=== PATIENT | male | born 1950 | race Caucasian/White ===

== ENCOUNTER 2017-04-19 15:28 | Inpatient (IN) | payer OTHER, MEDICARE ==
[~2017-04-19] VITALS: Ht 177.8 cm; Wt 53.3 kg
--- NOTE | ~2017-04-19 | PR ---
[place], [place] PROGRESS NOTE NAME: [id number] UNIT #: [id number] ROOM: 525 DOCTOR: NITO ALVARADO MD,CHAPIN BIRTHDATE: [birth year] DOS: 04/23/2017 SUBJECTIVE: His oxygen requirement has been noted back to 2 liter nasal cannula. The patient reported reduction in respiratory symptoms in general. The coughing and shortness of breath have been decreasing. OBJECTIVE: VITAL SIGNS: Normal temperature, respiratory rate 20, heart rate 73, blood pressure 118/68. The pulse oxygen saturation on 2 liters nasal cannula 92% saturation. HEENT: Showed no acute change. NECK: Supple. CARDIOVASCULAR: S1, S2 audible. LUNGS: Without any wheezing or crackle. Breaths are noted generally diminished bilaterally. ABDOMEN: Soft, nontender. LABORATORY DATA: CBC: WBC count was normal, hemoglobin 11.8, hematocrit 36.7, platelet count 210,000. BMP of the patient on 04/23/2017 was noted normal BUN and creatinine. CO2 of 37. IMPRESSION: 1. The patient who has been currently noted with resolving acute pneumonia as well as acute hypoxic respiratory failure. 2. History of nicotine dependence. 3. Acute exacerbation of chronic obstructive pulmonary disease. PLAN OF TREATMENT: Assessment for the home oxygen supplementation possible in the morning. Repeat a chest x-ray of the patient, PA lateral today, assessment of the progression of the pneumonia, radiological assessment. Other supportive plan of management and care. Usual treatment. Additional treatment changes for this patient will be done based on the progression of the illness. CHAPIN BEAUCHAMP MD CM:PNTRANS [id number] CHAPIN ALVARADO MD 04/24/17 0416 interface
--- NOTE | ~2017-04-19 | PR ---
[place], [place] PROGRESS NOTE NAME[facility] [id number] UNIT #: [id number] ROOM: 525 DOCTOR: NITO ALVARADO MD,CHAPIN BIRTHDATE: [birth year] DOS: 04/21/2017 SUBJECTIVE: He has been coughing at this time and noted some sputum expectoration. Denies any chest pain. He was continued with Solu-Medrol, bronchodilators, and the antibiotic with the respiratory symptom. The patient has been noted with partial reduction. OBJECTIVE: VITAL SIGNS: Shows a normal temperature, respiratory rate of 20, heart rate 74, and blood pressure 116/58. HEENT: Examination for the patient was noted without any acute new changes. NECK: Supple. CARDIOVASCULAR: S1, S2 audible. LUNGS: The patient was noted with general reduction in breath sounds with expiratory wheezing. There were no crackles. ABDOMEN: Soft, nontender. LABORATORY DATA: BMP normal. CBC, mild anemia, otherwise normal. IMPRESSION: The patient with acute pneumonia with exacerbation of chronic obstructive pulmonary disease with additional area of possible atelectasis, mucus impaction of the airways, and severe bullous emphysema. PLAN OF MANAGEMENT: No changes from the pulmonary standpoint. Continue current dose of steroids, possible reduction may be considered for the morning. CHAPIN BEAUCHAMP MD CM:PNTRANS [id number] CHAPIN ALVARADO MD 04/22/17 0253 interface
--- NOTE | ~2017-04-19 | CON ---
[place], [place] REPORT OF CONSULTATION NAME: [facility] [id number] UNIT #: [id number] ROOM: 525 DOCTOR: BHUMI SANTANA DO BIRTHDATE: [birth year] DOS: 04/20/2017 This consult note is to be attached to the one dictated by Dr. Beauchamp separately. REASON FOR CONSULTATION: COPD. CHIEF COMPLAINT: Cough. HISTORY OF PRESENT ILLNESS: A 66-year-old gentleman presents with worsening shortness of breath. He follows with Dr. Beauchamp ____ and he is a chronic smoker and continues to do so. He does have a history of COPD and he uses oxygen at home in the form of 3 liters nasal cannula at night mostly. He states over the past 3 days, he has been needing his oxygen all the time and that his pulse ox has been lower than it had previously. He has had a history of a lobectomy and he does admit to chills and a productive cough that brings out white sputum. He denies chest pain, but admits to congestion and malaise. Denies any abdominal pain, nausea, vomiting, diarrhea or any other symptoms. PAST MEDICAL HISTORY: Significant for COPD, BPH, GERD, microcytic anemia, oxygen dependent COPD and protein-calorie malnutrition. PAST SURGICAL HISTORY: Positive for left hip replacement, history of lung surgery. SOCIAL HISTORY: Positive for intermediate tobacco abuse, but he does not drink or use any drugs. FAMILY HISTORY: Father had OR at age 50. Mother had breast cancer, hypothyroidism and Parkinson's. ALLERGIES: ERYTHROMYCIN BASE. HOME MEDICATIONS: Albuterol, aspirin, famotidine, Advair, DuoNeb, Flomax. REVIEW OF SYSTEMS: GENERAL: Reports chills, but denies fevers or weight loss or weight gain. HEENT: Denies any vision changes, blurred vision. CARDIOVASCULAR: Denies chest pain, palpitations, but does feels chest congestion and tightness. RESPIRATORY: Reports shortness of breath, cough, wheezing, productive cough with white sputum, but denies hemoptysis or stridor. ABDOMINAL: Denies abdominal pain, nausea, vomiting, diarrhea. GENITOURINARY: Denies dysuria, hematuria, but admits to frequency and hesitancy. NEUROLOGIC: Denies lightheadedness, dizziness. PSYCHIATRIC: Denies depression, anxiety. ENDOCRINE: Denies polydipsia or heat or cold intolerance. SKIN: Denies any rashes or new lesions. PHYSICAL EXAMINATION: [place], [place] REPORT OF CONSULTATION NAME: SANDRO SPAIN UNIT #: [id number] ROOM: [facility] DOCTOR: BHUMI SANTANA DO BIRTHDATE: [birth year] VITAL SIGNS: Most recent set of vital signs: Temperature is 98.5, pulse is 80, respiratory rate is 20, blood pressure is 116/70 and bedside pulse oximetry is 96% on 3 liter nasal cannula. GENERAL: Awake, alert, oriented, in no acute distress. HEAD: Normocephalic, atraumatic. EYES: No lesions. No ulcerations. Nonicteric. No drainage. ENT: No lesions. No scars. No masses. NECK: Without masses, without ulcerations. Trachea is midline. HEART: Regular rate and rhythm. No murmur. Carotids are free of bruits. LUNGS: Diminished breath sounds with rhonchi and wheezes. ABDOMEN: Soft, positive bowel sounds. No guarding. No rigidity. EXTREMITIES: No clubbing. No erythema. No cyanosis. NEUROLOGIC: Grossly intact without focal neuro deficits. PSYCHIATRIC: Good historian, with fair judgment and insight. LABORATORY DATA: Chemistry: Sodium is 138, potassium 4.2, chloride is 104, carbon dioxide is 29, BUN is 10, creatinine 0.36, glucose is 147, A1c 5.6, calcium 8.4. Vitamin B12 is ____. TSH is 0.289. CBC: WBC is 5.4, hemoglobin 11.7, platelets 128. IMAGING: Chest x-ray done yesterday shows emphysema and atelectasis, possible pneumonia. CT done yesterday showed bilateral lower lobe pneumonia and severe COPD. MICROBIOLOGY: Blood cultures are pending. Sputum cultures are pending. Flu swab is negative for A and B. ASSESSMENT: 1. Bilateral pneumonia, which is leading to acute on chronic respiratory failure with hypoxia. 2. Chronic obstructive pulmonary disease exacerbation. 3. Tobacco abuse. 4. Tobacco abuse counseling. Plan: The patient has been admitted and is being treated with Rocephin and azithromycin as well as Solu-Medrol. Solu-Medrol dosing has been changed to 40 mg t.i.d. We will continue with Rocephin, azithromycin, continue with breathing treatments q. 4 hours as needed. The patient has been counseled on tobacco abuse cessation. He verbalized understanding. Otherwise, we will wait on cultures to come back. We will continue with all the steroids, antibiotics for ____. If any other questions, please see Dr. Beauchamp's note. Thank you very much for this consult. BHUMI SANTANA DO [place], [place] REPORT OF CONSULTATION NAME: SANDRO SPAIN UNIT #: [id number] ROOM: [facility] DOCTOR: BHUMI SANTANA DO BIRTHDATE: [birth year] CHAPIN BEAUCHAMP MD CM:CONSTR:REPORT OF CONSULTATION 1331 04/20/17 2229 interface
--- NOTE | ~2017-04-19 | CON ---
[place], [place] REPORT OF CONSULTATION NAME: SANDRO SPAIN [facility] #: [id number] UNIT #: [id number] ROOM: 525 DOCTOR: NITO ALVARADO MD,CHAPIN BIRTHDATE: [birth year] DOS: 04/20/2017 REASON FOR CONSULTATION: Consultation requested by the Hospitalist Services for assessment exacerbation of COPD. The patient was independently seen today with [id number] encounter, history was confirmed for this patient. Personally physical examination performed. All the available labs for the patient including radiology data was personally reviewed. The assessment for this patient was personally completed for today's visit. The changes in the medical management was made today as well for this consultation personally. The patient was known to me with history of severe COPD with bullous emphysema with history of nicotine abuse. The patient stated that he has been noted with acute illness started with a sore throat, initially a few days ago, which has been noted progressively worsening with a coughing associated with intermittent sputum expectoration. The patient also reported symptoms of wheezing as well. There were no symptoms of chest pain reported. The patient came into the hospital where he has been admitted to the hospital for further medical management at this time. REVIEW OF SYSTEMS: Completed by the curator medical museum. PAST MEDICAL HISTORY: 1. The patient was known to me with centrilobular emphysema. The patient with embolism emphysema, which was noted moderate to severe previously. 2. History of BPH. 3. Fungal infection, right upper lobe. The patient is status post lobectomy. 4. Past history of acute hypoxic respiratory failure, resolved. PAST SURGICAL HISTORY: 1. Removal of cyst from the hip. 2. Past therapeutic bronchoscopy. 3. PICC line insertion. 4. Right upper lobectomy for fungal infection as well approximately 8 years ago. SOCIAL HISTORY: The patient is . He is currently retired. He has been exposed to the dust intermittently at his job. Smoking started for the patient since teenager, one and half to 2 packs of cigarettes per day, was still smoking about half a pack of cigarettes or so. Stated that he has not smoked cigarettes in the past few days since . Denies any history of alcohol use at this time, but used to drink alcohol in the past. FAMILY HISTORY: Noted remarkable for cancer and myocardial infarction. MEDICATIONS: Current administered medications Solu-Medrol 60 mg q.8 hours, aspirin, Flomax, Lovenox for DVT prophylaxis, Prilosec, Mucinex 1200 mg b.i.d., DuoNeb q.4h., Zithromax and IV Rocephin administration. ALLERGIES: NOTED ALLERGY TO ERYTHROMYCIN. PHYSICAL EXAMINATION: [place], [place] REPORT OF CONSULTATION [facility] [id number] UNIT #: [id number] ROOM: 525 DOCTOR: NITO ALVARADO MD,CHAPIN BIRTHDATE: [birth year] GENERAL: A 66-year-old male who has been currently noted comfortable at this time, sitting on side of the bed. Height of 5 feet 10 inches, weight 117 pounds, BMI 16.8. VITAL SIGNS: Normal temperature, respiratory rate 18-22, heart rate 80 to 64, blood pressure 116/70 to 118/70. Pulse oxygen saturation of the patient was noted on 3 liters nasal cannula 96% saturation. HEENT: Examination shows head was atraumatic. Eyes nonicterus. NECK: Supple. Oral mucosa moist. CARDIOVASCULAR: S1, S2 audible. LUNGS: The patient noted with moderate decreased breath sounds in the lungs bilaterally with expiratory wheezing. There were no crackles. ABDOMEN: Soft, flat, nontender, bowel sounds present. CENTRAL NERVOUS SYSTEM: Was noted with Cranial nerves 2-12 intact. No focal deficit. EXTREMITIES: The patient was noted without any edema, clubbing or cyanosis. LABORATORY DATA: CBC of the patient that was done yesterday on admission; WBC count 11.5, hemoglobin 13.4, hematocrit 40.3, platelet count normal. WBC count normal. PT/INR was normal. CMP of the patient of 04/19/2017; BUN and creatinine was normal. Sodium 133. AST of 36. Lactic acid yesterday 1.4. Influenza A and B, nasal washing antigens yesterday noted negative. CBC is normal. WBC count, remaining CBC unchanged. BMP: Glucose 147, normal BUN, creatinine and the other electrolytes and the LFTs. The chest x-ray, one view, that was done was reviewed, shows postsurgical changes, right upper lobe with volume loss as a chronic finding without any acute visible acute infiltration. CT scan of the chest was done for this patient yesterday that I personally reviewed from the PACS images, shows severe bullous emphysema changes noted in the lungs bilaterally. A large bullous emphysema was present in the right middle lobe patient with some area of scarring. Acute infiltration was noted. Area of consolidation in the right and the left lower lobes. IMPRESSION: 1. The patient who has been currently admitted to the hospital. The patient was noted with finding consistent with an acute bilateral lower lobe pneumonia secondary to current acute illness of patient with acute exacerbation of chronic obstructive pulmonary disease as well. 2. Severe bullous emphysema, which has been noted severe from the past with chronic continued nicotine abuse. There was no evidence of pneumothorax. 3. The patient with low BMI for the patient, which is chronic and known previously. 4. Mild hyponatremia for this patient was also noted, which has hyponatremia secondary to intravascular volume depletion, resolved for the patient in 24 hours with hydration. PLAN OF MANAGEMENT: The sputum for Gram stain and culture. Continue Mucinex. Reduce Solu-Medrol 40 mg q.8h. Continue current antibiotics with monitoring of the respiratory status. There is no need for BiPAP use. Other supportive therapy, plan of management to be continued. Additional treatment changes to be made based on the progression of his illness. [place], [place] REPORT OF CONSULTATION NAME: SANDRO SPAIN [facility] UNIT #: [id number] ROOM: 525 DOCTOR: CHAPIN STAFFORD MD BIRTHDATE: [birth year] CHAPIN BEAUCHAMP MD CM:CONSTR:REPORT OF CONSULTATION 1225 04/21/17 0114 interface
--- NOTE | ~2017-04-19 | PR ---
[place], [place] PROGRESS NOTE NAME[id number] UNIT #: [id number] ROOM: 525 DOCTOR: CHAPIN STAFFORD MD BIRTHDATE: [birth year] DOS: 04/24/2017 SUBJECTIVE: He has been noted comfortable at this time without any distress. He has not been noted with symptoms of chest pain or any abdominal pain. The respiratory symptom has been noted with gradual reduction. OBJECTIVE: VITAL SIGNS: Show the temperature noted as normal. Respiratory rate was noted as 20. Heart rate of 70. Blood pressure 118/72. Pulse oxygen saturation on 2 liters nasal cannula 94% saturation. HEENT: Examination shows no new change. NECK: Supple. CARDIOVASCULAR: S1, S2 audible. LUNGS: The patient was noted with moderate decreased breath sounds without wheezing or crackles. ABDOMEN: Soft, nontender. DIAGNOSTIC DATA: The patient's chest x-ray done yesterday was reviewed, PA lateral view resolving infiltration in the right lower lobe. Severe COPD changes bullous emphysema was seen. IMPRESSION: 1. The patient who has been currently noted with a gradual improvement in the respiratory status. 2. Acute hypoxic respiratory failure, will be requiring oxygen supplementation as assessment was performed yesterday. The patient will be needing 2 liters of oxygen supplementation. 3. Resolving acute right lower lobe pneumonia, nonaspiration with the gram-positive organisms. 4. History of low-grade nicotine abuse. 5. Bullous emphysema. PLAN OF TREATMENT: The patient could be discharged on oral tapering dose of prednisone, antibiotics and oxygen supplementation. Portable oxygen use. Outpatient follow up in about 2 to 3 weeks to be established in the office. [place], [place] PROGRESS NOTE NAME: SANDRO SPAIN UNIT #: [id number] ROOM: [facility] DOCTOR: CHAPIN STAFFORD MD BIRTHDATE: [birth year] CHAPIN BEAUCHAMP MD CM:PNTRANS [id number] CHAPIN ALVARADO MD 04/25/17 0046 interface
--- NOTE | ~2017-04-19 | PR ---
[place], [place] PROGRESS NOTE [id number] UNIT #: [id number] ROOM: 525 DOCTOR: NITO ALVARADO MD,CHAPIN BIRTHDATE: [birth year] DOS: 04/22/2017 SUBJECTIVE: He has been noted comfortable at this time. Oxygen supplementation, the patient was given between 2 to 4 liter nasal cannula for the medical management of hypoxia. The patient's shortness of breath, cough and other symptoms have been improving, but slowly. OBJECTIVE: VITAL SIGNS: For the patient which has been recorded shows normal temperature, respiratory rate 20, heart rate 78, blood pressure 119/82. Pulse oxygen saturation, the patient on 3 liters with 95% saturation. HEENT: Shows no acute change. NECK: Supple. CARDIOVASCULAR: S1, S2 audible. LUNGS: General reduction in the breath sounds were noted in the lungs bilaterally. There were no wheeze or crackles. ABDOMEN: Soft, nontender. IMPRESSION: 1. Stable respiratory status was noted at the present time with resolving acute pneumonia, lower lungs, with some areas of atelectasis. 2. Acute exacerbation of chronic obstructive pulmonary disease. 3. Acute hypoxic respiratory failure, requiring oxygen 4 liter nasal cannula, normally does not use any oxygen at home. PLAN OF MANAGEMENT: No changes in the plan of therapy at this time will be necessary. The patient will be continued on the current plan of management and care. Usual care, other supportive plan of therapies and treatments. CHAPIN BEAUCHAMP MD CM:PATRICK 1140 CHAPIN ALVARADO MD 04/23/17 0117 interface
[~2017-04-19 15:28] MED LIST: ACCUNEB 0.1.25 MG/1 INH; ADVAIR 250/501 EA; ASPIRIN81 M1 PO; CEFEPIME1 GM IJ; DULCOLAX5 MG PO; DUONEB 3 MG/3 ML3 M1 INH; Duoneb 3ML 3 MG/3 ML INH; FLOMAX0.4 MG; LEVAQUIN500 M1 IV; MEDROL DOSEPAK4 MG PO; METHYLPREDNI40 MG/M1 IV; MUCINEX DM 30/61 TAB PO; MULTIVITAMIN1 CTB PO; PEPCID20 MG PO; PROAIR HFA8.5 GM IH; PROVENTIL0.09 MG/AC; ROBITUSSIN AC 110 ML PO; SOLU-MEDROL1000 MG IV; TYLENOL325 M1 PO; VANCOMYCIN750 MG/151 IV; XANAX0.25 MG PO; ZALEPLON5 MG PO; ZOSYN 3.373.375 GM/5 IV
[2017-04-19 15:40] VITALS: BP 114/71
[2017-04-19 16:09] LABS: HEMATOCRIT 40.3 % (42.0-52.0); HEMOGLOBIN 13.4 g/dl (14.0-18.0); MEAN CELL VOLUME 96.6 fl (80.0-94.0); MEAN CORPUSCULAR HGB 32.1 pg (27.0-31.0); MEAN CORPUSCULAR HGB CONC 33.3 g/dl (33.0-37.0); MEAN PLATELET VOLUME 11.5 fl (9.6-12.3); PLATELET COUNT AUTOMATED 171 10*3/uL (130-400); RED BLOOD COUNT 4.17 10*6/uL (4.50-5.90); RED CELL DISTRI WIDTH 12.8 % (0-14.5); WHITE BLOOD COUNT 11.5 10*3/uL (4.8-10.8)
[2017-04-19 16:25] LABS: ALBUMIN 3.4 gm/dl (3.1-4.5); ALKALINE PHOSPHATASE 209 U/L (45-117); BUN 14 mg/dl (7-24); CHLORIDE 95 mmol/L (98-107); CREATININE 0.51 mg/dL (0.70-1.30); POTASSIUM 4.2 mmol/L (3.5-5.1); SGOT/AST 36 IU/L (3-35); SGPT/ALT 22 U/L (12-78); SODIUM 133 mmol/L (136-145); TOTAL PROTEIN 7.1 gm/dL (6.4-8.2)
[2017-04-19 16:28] LABS: BASOPHILS 1 % (0-1); PLATELET SUFFICIENCY NORMAL (NORMAL); TOTAL CELLS COUNTED 100 #CELLS
[2017-04-19 16:34] LABS: TROPONIN I < 0.015 ng/ml (<0.045)
[2017-04-19 18:12] VITALS: BP 118/72
[2017-04-19] MEDS ORDERED: OMEPRAZOLE20 M2 PO (19:08)
[2017-04-19] MEDS ORDERED: SYMB160 INH (19:09)
[2017-04-19 20:00] VITALS: BP 112/75
[2017-04-20] VITALS: BP 105/65
[2017-04-20 06:32] LABS: HEMATOCRIT 35.8 % (42.0-52.0); HEMOGLOBIN 11.7 g/dl (14.0-18.0); LYMPH # 0.3 10*3/uL (1.3-4.4); LYMPH % 5.7 % (27.0-41.0); MEAN CELL VOLUME 98.6 fl (80.0-94.0); MEAN CORPUSCULAR HGB 32.2 pg (27.0-31.0); MEAN CORPUSCULAR HGB CONC 32.7 g/dl (33.0-37.0); MEAN PLATELET VOLUME 11.5 fl (9.6-12.3); MONO # 0.3 10*3/uL (0.1-1.0); MONO % 5.2 % (3.0-9.0); NEUT # 4.8 10*3/uL (2.3-7.9); NEUT % 88.5 % (47.0-73.0); PLATELET COUNT AUTOMATED 158 10*3/uL (130-400); RED BLOOD COUNT 3.63 10*6/uL (4.50-5.90); RED CELL DISTRI WIDTH 12.8 % (0-14.5); WHITE BLOOD COUNT 5.4 10*3/uL (4.8-10.8)
[2017-04-20 07:01] LABS: BUN 10 mg/dl (7-24); CHLORIDE 104 mmol/L (98-107); CHOLESTEROL 125 mg/dL (<200); CREATININE 0.36 mg/dL (0.70-1.30); HDL CHOLESTEROL 59 mg/dl (40-60); LDL CHOLESTEROL 58 mg/dL (9-159); PHOSPHOROUS 2.7 mg/dL (2.5-4.9); POTASSIUM 4.2 mmol/L (3.5-5.1); SODIUM 138 mmol/L (136-145); TRIGLYCERIDES 41 mg/dl (<150); VLDL CHOLESTEROL 8 mg/dL (6-40)
[2017-04-20 07:08] LABS: THYROID STIM HORMONE (HS) 0.289 uIU/ml (0.358-4.75)
[2017-04-20 08:00] VITALS: BP 118/70
[2017-04-20 08:03] LABS: VITAMIN D, 25-HYDROXY 24.6 ng/mL (30-100)
[2017-04-20 12:07] VITALS: BP 116/70
[2017-04-20 16:00] VITALS: BP 99/60
[2017-04-20 20:00] VITALS: BP 99/58
[2017-04-21] VITALS: BP 92/58
[2017-04-21 07:13] LABS: BASO % 0.1 % (0.0-1.0); HEMATOCRIT 34.7 % (42.0-52.0); HEMOGLOBIN 11.4 g/dl (14.0-18.0); LYMPH # 0.6 10*3/uL (1.3-4.4); LYMPH % 5.3 % (27.0-41.0); MEAN CELL VOLUME 99.4 fl (80.0-94.0); MEAN CORPUSCULAR HGB 32.7 pg (27.0-31.0); MEAN CORPUSCULAR HGB CONC 32.9 g/dl (33.0-37.0); MEAN PLATELET VOLUME 11.7 fl (9.6-12.3); MONO # 0.7 10*3/uL (0.1-1.0); MONO % 6.5 % (3.0-9.0); NEUT # 9.3 10*3/uL (2.3-7.9); NEUT % 87.4 % (47.0-73.0); PLATELET COUNT AUTOMATED 179 10*3/uL (130-400); RED BLOOD COUNT 3.49 10*6/uL (4.50-5.90); RED CELL DISTRI WIDTH 12.8 % (0-14.5); WHITE BLOOD COUNT 10.6 10*3/uL (4.8-10.8)
[2017-04-21 07:41] LABS: BUN 9 mg/dl (7-24); CHLORIDE 103 mmol/L (98-107); CREATININE 0.43 mg/dL (0.70-1.30); POTASSIUM 4.1 mmol/L (3.5-5.1); SODIUM 140 mmol/L (136-145)
[2017-04-21 08:00] VITALS: BP 106/58
[2017-04-21 12:00] VITALS: BP 112/60
[2017-04-21 16:00] VITALS: BP 106/84
[2017-04-21 20:00] VITALS: BP 112/72
[2017-04-22] VITALS: BP 108/67
[2017-04-22 06:28] LABS: BASO % 0.1 % (0.0-1.0); HEMATOCRIT 36.4 % (42.0-52.0); HEMOGLOBIN 11.8 g/dl (14.0-18.0); LYMPH # 0.5 10*3/uL (1.3-4.4); LYMPH % 4.8 % (27.0-41.0); MEAN CELL VOLUME 99.2 fl (80.0-94.0); MEAN CORPUSCULAR HGB 32.2 pg (27.0-31.0); MEAN CORPUSCULAR HGB CONC 32.4 g/dl (33.0-37.0); MEAN PLATELET VOLUME 11.3 fl (9.6-12.3); MONO # 0.7 10*3/uL (0.1-1.0); MONO % 6.2 % (3.0-9.0); NEUT # 9.3 10*3/uL (2.3-7.9); NEUT % 88.4 % (47.0-73.0); PLATELET COUNT AUTOMATED 211 10*3/uL (130-400); RED BLOOD COUNT 3.67 10*6/uL (4.50-5.90); RED CELL DISTRI WIDTH 12.9 % (0-14.5); WHITE BLOOD COUNT 10.5 10*3/uL (4.8-10.8)
[2017-04-22 06:53] LABS: CREATININE 0.52 mg/dL (0.70-1.30)
[2017-04-22 08:00] VITALS: BP 119/82
[2017-04-22 12:00] VITALS: BP 121/66
[2017-04-22 16:00] VITALS: BP 117/57
[2017-04-22 20:00] VITALS: BP 125/75
[2017-04-23] VITALS: BP 114/68
[2017-04-23 05:53] LABS: BASO % 0.1 % (0.0-1.0); HEMATOCRIT 36.7 % (42.0-52.0); HEMOGLOBIN 11.8 g/dl (14.0-18.0); LYMPH # 0.9 10*3/uL (1.3-4.4); LYMPH % 8.7 % (27.0-41.0); MEAN CELL VOLUME 99.7 fl (80.0-94.0); MEAN CORPUSCULAR HGB 32.1 pg (27.0-31.0); MEAN CORPUSCULAR HGB CONC 32.2 g/dl (33.0-37.0); MONO # 1.2 10*3/uL (0.1-1.0); MONO % 11.9 % (3.0-9.0); NEUT # 8.2 10*3/uL (2.3-7.9); NEUT % 78.8 % (47.0-73.0); PLATELET COUNT AUTOMATED 210 10*3/uL (130-400); RED BLOOD COUNT 3.68 10*6/uL (4.50-5.90); WHITE BLOOD COUNT 10.4 10*3/uL (4.8-10.8)
[2017-04-23 06:33] LABS: BUN 13 mg/dl (7-24); CHLORIDE 100 mmol/L (98-107); POTASSIUM 3.7 mmol/L (3.5-5.1); SODIUM 140 mmol/L (136-145)
[2017-04-23 06:34] LABS: CREATININE 0.43 mg/dL (0.70-1.30)
[2017-04-23 08:00] VITALS: BP 118/72
[2017-04-23 12:00] VITALS: BP 118/68
[2017-04-23 16:00] VITALS: BP 123/74
[2017-04-23 20:00] VITALS: BP 120/79
[2017-04-24] VITALS: BP 139/81
[2017-04-24 08:00] VITALS: BP 118/72
[2017-04-24 12:00] VITALS: BP 120/73
[2017-04-24] MEDS ORDERED: PREDNISONE10 MG PO (12:54)
[2017-04-24] MEDS ORDERED: OXYGEN NAS (12:54)
[2017-04-24] MEDS ORDERED: VIBRAMYCIN100 MG PO (12:54)
[2017-04-24 16:00] VITALS: BP 109/57
== END 2017-04-24 16:15 | disposition home or self-care (01) | DRG 871 ==
LOC: ED 15:28 → 5E 17:03 → EDHOLD 17:03 → 5E 17:11
PROVIDERS: Internal Medicine; Physician Assistant; Student in an Organized Health Care Education/Training Program; ADMIT Internal Medicine
DX: A41.9 Sepsis, unspecified organism (principal); J96.21 Acute and chronic respiratory failure with hypoxia; J15.9 Unspecified bacterial pneumonia; E87.1 Hypo-osmolality and hyponatremia; J44.1 Chronic obstructive pulmonary disease with (acute) exacerbation; E44.1 Mild protein-calorie malnutrition; J44.0 Chronic obstructive pulmonary disease with (acute) lower respiratory infection; J98.11 Atelectasis; Z68.1 Body mass index [BMI] 19.9 or less, adult; K21.9 Gastro-esophageal reflux disease without esophagitis; D53.9 Nutritional anemia, unspecified; E55.9 Vitamin D deficiency, unspecified; E87.8 Other disorders of electrolyte and fluid balance, not elsewhere classified; Z96.642 Presence of left artificial hip joint; N40.0 Benign prostatic hyperplasia without lower urinary tract symptoms; D72.810 Lymphocytopenia; R65.20 Severe sepsis without septic shock; R73.9 Hyperglycemia, unspecified; Z71.6 Tobacco abuse counseling; Z99.81 Dependence on supplemental oxygen; Z82.49 Family history of ischemic heart disease and other diseases of the circulatory system; Z80.3 Family history of malignant neoplasm of breast; Z81.8 Family history of other mental and behavioral disorders; Z84.89 Family history of other specified conditions; Z88.1 Allergy status to other antibiotic agents; Z72.0 Tobacco use

== ENCOUNTER → 2018-05-30 | Day surgery (SDC) | payer OTHER, MEDICARE ==
[~2018-05-30] VITALS: Ht 180.3 cm; Wt 54.4 kg
[~2018-05-30] MED LIST changes: +AVODART0.5 M1 PO; +OMEPRAZOLE20 M2 PO; +OXYGEN NAS; +PREDNISONE10 MG PO; +SYMB160 INH; +VIBRAMYCIN100 MG PO; +VITAMIN D PO
--- NOTE | ~2018-05-30 | O ---
[place], [place] OPERATIVE NOTE [id number] UNIT #: [id number] ROOM: DOCTOR: DANIA RICK MD BIRTHDATE: [birth year] DOS: 05/30/2018 PREOPERATIVE DIAGNOSIS: Cataract, right eye. POSTOPERATIVE DIAGNOSIS: Cataract, right eye. OPERATION: Extracapsular cataract extraction by phacoemulsification with posterior chamber intraocular lens implantation, right eye. ANESTHESIA: Monitored standby. OPERATIVE FINDINGS AND PROCEDURE: 2% Xylocaine topical anesthetic gel was applied to the eye in the preop area. The patient was taken to the operating room and prepped and draped in the standard fashion for sterile intraocular surgery. A time out procedure was performed verifying correct patient, correct site and corrects lens with Meaghan Rick M.D. The operating microscope was swung into position and the lid speculum was inserted. Using a Naya paracentesis blade, a paracentesis was made through clear cornea. Viscoelastic was used to fill the anterior chamber. Using a metal keratome a 2.4 mm self-sealing clear corneal cataract incision was made temporally at the limbus. Using a pre-bent 25 gauge cystotome needle, a standard continuous curvilinear capsulorrhexis was performed. The anterior capsule was removed with forceps. The lens nucleus was hydrodissected and phacoemulsified in the posterior chamber. Cortical material was removed with the irrigation aspiration hand piece and the posterior capsule was then polished with a curet under irrigation. The posterior chamber and capsular bag were filled with viscoelastic. A posterior chamber intraocular lens manufactured by: [employer], Model #[id number], and 17.0 diopters in strength were then inserted into the posterior chamber and within the capsular bag using the lens cartridge and injector system. Viscoelastic was removed using the irrigation aspiration handpiece. The anterior chamber was filled with balanced salt solution through the paracentesis. Both the paracentesis site and cataract incisions were hydrated with BSS and verified to be water-tight and self-sealing. Cefuroxime 1 mg/0.1 mL was injected into the anterior chamber through the paracentesis site. The incision checked to be water-tight using a Weck-Ani sponge. The integrity of the cataract wound and ocular tension were checked. Lid speculum and drapes were removed. The patient was transferred from the operating room to the recovery room in satisfactory condition. [place], [place] OPERATIVE NOTE NAME: JUDITSANDRO Cortez UNIT #: [id number] ROOM: DOCTOR: DANIA RICK MD BIRTHDATE: [birth year] DANIA RICK MD CM:OPRECORD:OPERATIVE NOTE [id number] [id number] DANIA RICK MD 05/30/18 1237 interface
[2018-05-30 10:50] VITALS: BP 105/64
[2018-05-30 12:02] VITALS: BP 88/63
[2018-05-30 12:15] VITALS: BP 94/70
[2018-05-30 12:31] VITALS: BP 104/66
== END | disposition home or self-care (01) ==
LOC: SDC 05-28 17:00
DX: H25.811 Combined forms of age-related cataract, right eye (principal); J44.9 Chronic obstructive pulmonary disease, unspecified; F17.210 Nicotine dependence, cigarettes, uncomplicated; F41.9 Anxiety disorder, unspecified; Z98.890 Other specified postprocedural states; Z88.8 Allergy status to other drugs, medicaments and biological substances; Z88.1 Allergy status to other antibiotic agents; Z87.01 Personal history of pneumonia (recurrent); Z82.49 Family history of ischemic heart disease and other diseases of the circulatory system

== ENCOUNTER → 2018-06-27 | Day surgery (SDC) | payer OTHER, MEDICARE ==
[~2018-06-27] VITALS: Ht 154.9 cm; Wt 54.4 kg
--- NOTE | ~2018-06-27 | O ---
[place], [place] OPERATIVE NOTE [id number] UNIT #: [id number] ROOM: DOCTOR: DANIA RICK MD BIRTHDATE: [birth year] DOS: 06/27/2018 PREOPERATIVE DIAGNOSIS: Cataract, left eye. POSTOPERATIVE DIAGNOSIS: Cataract, left eye. OPERATION: Extracapsular cataract extraction by phacoemulsification with posterior chamber intraocular lens implantation, left eye. ANESTHESIA: Monitored standby. OPERATIVE FINDINGS AND PROCEDURE: 2% Xylocaine topical anesthetic gel was applied to the eye in the preop area. The patient was taken to the operating room and prepped and draped in the standard fashion for sterile intraocular surgery. A time out procedure was performed verifying correct patient, correct site and corrects lens with Meaghan Rick M.D. The operating microscope was swung into position and the lid speculum was inserted. Using a Naya paracentesis blade, a paracentesis was made through clear cornea. Viscoelastic was used to fill the anterior chamber. Using a metal keratome a 2.4 mm self-sealing clear corneal cataract incision was made temporally at the limbus. Using a pre-bent 25 gauge cystotome needle, a standard continuous curvilinear capsulorrhexis was performed. The anterior capsule was removed with forceps. The lens nucleus was hydrodissected and phacoemulsified in the posterior chamber. Cortical material was removed with the irrigation aspiration hand piece and the posterior capsule was then polished with a curet under irrigation. The posterior chamber and capsular bag were filled with viscoelastic. A posterior chamber intraocular lens manufactured by: [employer], Model [id number] and 18.0 diopters in strength were then inserted into the posterior chamber and within the capsular bag using the lens cartridge and injector system. Viscoelastic was removed using the irrigation aspiration handpiece. The anterior chamber was filled with balanced salt solution through the paracentesis. Both the paracentesis site and cataract incisions were hydrated with BSS and verified to be water-tight and self-sealing. Cefuroxime 1 mg/0.1 mL was injected into the anterior chamber through the paracentesis site. The incision checked to be water-tight using a Weck-Ani sponge. The integrity of the cataract wound and ocular tension were checked. Lid speculum and drapes were removed. The patient was transferred from the operating room to the recovery room in satisfactory condition. [place], [place] OPERATIVE NOTE NAME: SANDRO SPAIN UNIT #: [id number] ROOM: DOCTOR: DANIA RICK MD BIRTHDATE: [birth year] DANIA RICK MD CM:OPRECORD:OPERATIVE NOTE 1254 1307 DANIA RICK MD 06/27/18 1307 interface
[2018-06-27 11:57] VITALS: BP 98/56
[2018-06-27 12:49] VITALS: BP 90/64
[2018-06-27 13:05] VITALS: BP 93/64
[2018-06-27 13:17] VITALS: BP 93/66
== END ==
LOC: SDC 06-22 11:00
DX: H25.812 Combined forms of age-related cataract, left eye (principal); J44.9 Chronic obstructive pulmonary disease, unspecified; N40.0 Benign prostatic hyperplasia without lower urinary tract symptoms; F41.9 Anxiety disorder, unspecified; F17.210 Nicotine dependence, cigarettes, uncomplicated; Z98.890 Other specified postprocedural states; Z98.41 Cataract extraction status, right eye; Z82.49 Family history of ischemic heart disease and other diseases of the circulatory system; Z79.899 Other long term (current) drug therapy

== ENCOUNTER → 2018-09-17 | Outpatient (CLI) | payer OTHER, MEDICARE ==
[2018-09-18 08:11] LABS: ALPHA-1-ANTITRYPSIN, SERUM 133 mg/dL (90-200)
[2018-09-20 16:07] LABS: PHENOTYPE MZ (.)
== END | disposition home or self-care (01) ==
LOC: LAB 13:04
PROVIDERS: Internal Medicine Critical Care Medicine
DX: J44.9 Chronic obstructive pulmonary disease, unspecified (principal)

== ENCOUNTER → 2019-01-24 | Outpatient (CLI) | payer OTHER, MEDICARE | END | disposition home or self-care (01) | LOC: CT 08:35 | DX: J43.2 Centrilobular emphysema (principal); R91.1 Solitary pulmonary nodule; M47.814 Spondylosis without myelopathy or radiculopathy, thoracic region; R06.02 Shortness of breath; I70.0 Atherosclerosis of aorta ==

== ENCOUNTER → 2019-01-30 | Outpatient (CLI) | payer OTHER, MEDICARE | END | disposition home or self-care (01) | LOC: LAB 01-29 12:00 | DX: R05 Cough (principal) ==

== ENCOUNTER → 2019-03-01 | Outpatient (CLI) | payer MEDICARE, OTHER ==
[~2019-03-01] MED LIST changes: +CEFTRIAXON2 GM/50 ML IV; +Ipratropium Brom3 ML INH; +OMEPRAZOLE MAGN20 MG PO; +VENT7GM INH; -VITAMIN D PO; +VITAMIN D31000 UNI1 PO
== END | disposition home or self-care (01) ==
LOC: CT 10:37
DX: J43.9 Emphysema, unspecified (principal); R91.8 Other nonspecific abnormal finding of lung field; J18.9 Pneumonia, unspecified organism

== ENCOUNTER 2019-03-06 16:26 | Inpatient (IN) | payer MEDICARE, OTHER ==
[2019-03-06] VITALS (8 sets, daily range): BP systolic 90–118; BP diastolic 59–78
[~2019-03-06] VITALS: Ht 180 cm; Wt 50.8 kg
--- NOTE | ~2019-03-06 | PR ---
[place], [place] PROGRESS NOTE [id number] UNIT #: [id number] ROOM: 407 DOCTOR: DEWAYNE GRAY MD BIRTHDATE: [birth year] DOS: SUBJECTIVE: The patient is feeling better, does not have any new complaints. OBJECTIVE: VITAL SIGNS: Graphic trend shows a pressure of 110/70, pulse of 76, respirations 22, temperature 97.5. LUNGS: Diminished breath sounds. No wheezes, rales, or rhonchi heard today. HEART: Regular. ABDOMEN: Obese, soft. EXTREMITIES: Without any edema. ASSESSMENT AND PLAN: 1. Acute exacerbation of chronic obstructive pulmonary disease, stable on current dose of medications. 2. Chronic respiratory failure, on oxygen supplementation at home. 3. Sepsis pattern with negative blood cultures, sepsis ruled out. 4. Bronchoscopy with bronch cultures still pending. 5. Abnormal CT of the chest, possible underlying pneumonia, on IV antibiotics. 6. Failure to thrive, is currently on PT, OT. DEWAYNE GRAY MD CM:PNTRANS [phone] DEWAYNE GRAY MD 03/09/19 1032 interface
--- NOTE | ~2019-03-06 | PR ---
[place], [place] PROGRESS NOTE NAME: SANDRO SPAIN [facility] #: [id number] UNIT #: [id number] ROOM: 407 DOCTOR: NITO ALVARADO MD,CHAPIN BIRTHDATE: [birth year] DOS: 03/10/2019 PULMONARY PROGRESS NOTE SUBJECTIVE: The patient noted comfortable at this time with improvement in the overall debility continued. Denies symptoms of chest pain, fever or chills. Denies symptoms of hemoptysis. He was continued on intravenous antibiotics. PHYSICAL EXAMINATION: GENERAL: The patient is comfortably resting in the bed this morning. VITAL SIGNS: Normal temperature, respiratory rate 20, heart rate 89, blood pressure 115/68. Pulse oxygen saturation on 3 liters nasal cannula 97% saturation recorded. HEENT: Examination shows head was atraumatic. Eyes nonicterus. NECK: Supple. CARDIOVASCULAR SYSTEM: S1, S2 is audible. LUNGS: Noted without any crackles. Scattered expiratory wheezing. ABDOMEN: Soft, nontender. Bowel sounds present. EXTREMITIES: No new change. LABORATORY DATA: The cultures of the bronchial washing BAL all noted as no bacterial growth at this time. IMPRESSION: The patient with acute pneumonia, failed outpatient treatment with oral Levaquin and other antibiotics. Cultures were noted no bacterial growth. PLAN OF TREATMENT: Starting the patient on intravenous Rocephin 2 g daily, which will be continued as an outpatient at least for 7 days with oral doxycycline as well. The arrangement for the discharge with either outpatient infusion for this patient ordered in the home setting needs to be inquired. In the meantime, other therapy, plan of management will be continued as in progress. Meropenem was discontinued. CHAPIN BEAUCHAMP MD CM:PNTRANS 1457 1 CHAPIN ALVARADO MD 03/11/19321 interface
--- NOTE | ~2019-03-06 | EKG ---
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
--- NOTE | ~2019-03-06 | DS ---
[place], [place] DISCHARGE SUMMARY NAME: SANDRO SPAIN [facility] #: [id number] UNIT #: [id number] ROOM: 407 DOCTOR: DOMINGO COOPER MD BIRTHDATE: [birth year] DOS: 03/11/2019 DISCHARGE DIAGNOSES: 1. The patient with right lower lobe pneumonia. 2. Acute over chronic respiratory failure. 3. Acute exacerbation of chronic obstructive pulmonary disease with chronic respiratory failure. 4. Advanced adult failure to thrive. 5. Jdda-vb-iqxfhnny protein-calorie malnutrition, albumin level of 2.9. 6. Gastroesophageal reflux disease and esophagitis. 7. Benign prostatic hypertrophy and urinary retention. 8. Generalized weakness, adult failure to thrive. 9. Generalized anxiety disorder. 10. Vitamin D deficiency. 11. Right partial lobectomy. HOSPITAL COURSE: The patient presented to the Emergency Department at [facility] with increasing shortness of breath and found to have pneumonia. He was treated with Rocephin and meropenem along with breathing treatments and BiPAP and he slowly improved. The patient was also taken for bronchoscopy and finally he is being discharged to home on IV Rocephin for 10 more days for which he will come back to the hospital to get his antibiotic. Dr. Harmon, the ripening room attendant followed his progress through the hospital stay and decided on his pneumonia management and management for acute respiratory failure. 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 BPH and urinary retention, treated with Flomax and Proscar. Generalized weakness and adult failure to thrive. The patient worked with Physical Therapy. Mnol-aw-qfdohtid protein-calorie malnutrition. The patient worked with Dietary. Albumin level of 2.9. LABORATORY DATA: Chest x-ray showing right lower lobe pneumonia. No leukocytosis. Sputum cultures were negative. At admission, the patient showed signs of early sepsis including increased need for oxygen, tachypnea, tachycardia, pneumonia, which was treated and has improved. DISCHARGE MANAGEMENT: IV Rocephin 2 grams daily for 10 days, Flomax 0.4 mg daily, Avodart 0.5 mg daily, omeprazole 20 mg a day, DuoNeb every 4 hours and Pulmicort 0.5 mg b.i.d., Cyclopentolate eyedrops 1% as directed. FOLLOWUP: With me in the office in less than a week. [place], [place] DISCHARGE SUMMARY NAME: JUDITSANDRO Dana UNIT #: [id number] ROOM: 407 DOCTOR: KENNETH CORRALES,DOMINGO Mejía BIRTHDATE: [birth year] DOMINGO COOPER MD CM:DISCHARG [id number] DOMINGO COOPER MD 03/11/19 1309 interface
--- NOTE | ~2019-03-06 | PR ---
[place], [place] PROGRESS NOTE NAME: SANDRO SPAIN UNIT #: [id number] ROOM: 407 DOCTOR: NITO ALVARADO MD,CHAPIN BIRTHDATE: [birth year] DOS: 03/09/2019 PULMONARY PROGRESS NOTE SUBJECTIVE: He has been noted comfortable at this time, stating reduction in symptoms of fatigue. There was cough noted without any sputum expectoration. Post-bronchoscopy, the patient had been noted hypoxia which was managed effectively with the use of BiPAP for a few hours. He used the BiPAP additional few hours at night, currently using oxygen supplement nasal cannula. There were no symptoms of chest pain reported by the patient. Denies symptoms of hemoptysis. Denies symptoms of nausea, vomiting or diarrhea. Denies symptoms of headache or diplopia. Remaining systems were reviewed, they were noted all negative. OBJECTIVE: VITAL SIGNS: Which have been recorded shows his temperature was noted as normal this morning, respiratory rate recorded at 20, heart rate 85, blood pressure 91/59 to 110/62. Pulse oxygen saturation on 4 liters nasal cannula was 98% saturation recorded. HEENT: Shows head was atraumatic, eyes nonicterus. NECK: Supple. CARDIOVASCULAR: S1 and S2 audible. LUNGS: Noted without any wheezing or crackles. Generally diminished bilaterally. ABDOMEN: Soft, nontender. Bowel sounds present. EXTREMITIES: No new change. LABORATORY DATA: Assessment of the left lower lobe BAL noted 91% segmented neutrophils, highly suggestive of acute pneumonia or inflammatory condition. BAL from the superior segment of right upper lobe also shows 86% segmented neutrophils, suggestive of acute inflammatory condition such as infection is very likely. All the cultures on the patient, bilateral bronchial washing, cultures of the right lung and the left lower lobe so far showed no bacterial growth, the patient's final results are pending. IMPRESSION: 1. Acute pneumonia, nonresolving as an outpatient, rule out malignancy as well. 2. Bullous emphysema in the right lung as well. 3. Chronic obstructive pulmonary disease. PLAN OF MANAGEMENT: Discharge planning after the final culture results will be available tomorrow morning and antibiotic administration as an outpatient will be determined. Supportive therapy, plan of management, care plan of treatment and other therapies. Usual care. [place], [place] PROGRESS NOTE NAME: SANDRO SPAIN UNIT #: [id number] ROOM: [facility] DOCTOR: CHAPIN STAFFORD MD BIRTHDATE: [birth year] CHAPIN BEAUCHAMP MD CM:PNTRANS 1444 CHAPIN ALVARADO MD 03/10/1959 interface
--- NOTE | ~2019-03-06 | PR ---
[place], [place] PROGRESS NOTE NAME: SANDRO SPAIN [facility] #: [id number] UNIT #: [id number] ROOM: 407 DOCTOR: DEWAYNE GRAY MD BIRTHDATE: [birth year] DOS: 03/10/2019 SUBJECTIVE: The patient is about the same, does not have any new complaints. I saw him right after he went to the bathroom and he was found to be quite short of breath, sitting up at the edge of the bed. OBJECTIVE: VITAL SIGNS: Pressure is 105/67, pulse of 86, respirations 24, temperature 98.0. LUNGS: Diminished breath sounds. Very poor air entry. HEART: Regular. ABDOMEN: Soft, scaphoid. EXTREMITIES: Without any edema. ASSESSMENT AND PLAN: 1. Acute exacerbation of chronic obstructive pulmonary disease, on maximal treatment plan. 2. Adult failure to thrive. He is supposed to work with physical therapy and possibly considers rehabilitation. 3. Protein-calorie malnutrition, moderate. I suggested drinking milk shakes as a protein shakes since the patient is unable to eat food because of his underlying shortness of breath. 4. History of bronchoscopy with clearing of mucus. Cultures so far does not show any bacterial growth. Blood cultures also negative. DEWAYNE GRAY MD CM:PNTRANS [id number] 1034 DEWAYNE GRAY MD 03/10/19 1034 interface
--- NOTE | ~2019-03-06 | EKG ---
[place], [place] ELECTROCARDIOGRAM REPORT NAME: SANDRO SPAIN UNIT #: [id number] ROOM: 407 DOCTOR: KEYA DRAFT REPORT BIRTHDATE: [birth year] 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
--- NOTE | ~2019-03-06 | EKG ---
[place], [place] ELECTROCARDIOGRAM REPORT NAME: SANDRO SPAIN UNIT #: [id number] ROOM: 407 DOCTOR: KEYA DRAFT REPORT BIRTHDATE: [birth year] [facility] Test Date: 2019-03-06 Test Time: 18:22:27 Pat Name: SANDRO SPAIN Department: Room: 407 Gender: M Rating Examiner: : 1950 Requested By: VITA EAGLE Order Number: [id number] Reading MD: Kevon Velasco MD Measurements Intervals [place] Rate: 85 P: 80 ID: 132 QRS: 82 QRSD: 106 T: 70 QT: 355 QTc: 422 Interpretive Statements Sinus rhythm Right atrial enlargement Multiple premature complexes, vent \T\ supraven No previous ECG available for comparison Electronically Signed On 03-07-2019 5:46:08 PDT by Kevon Velasco MD CM:EKGRPT:ELECTROCARDIOGRAM REPORT 1822 0546 VITA ALANIS DRAFT REPORT VITA EAGLE DO
--- NOTE | ~2019-03-06 | PROC NOTE ---
[place], [place] PROCEDURE NOTE [id number] UN[facility] #: [id number] ROOM: 407 DOCTOR: NITO ALVARADO MD,CHAPIN BIRTHDATE: [birth year] DOS: 03/08/2019 PREOPERATIVE DIAGNOSIS: Abnormal finding, CT scan of chest superior segment of the right lower lobe as well as in the left lower lobe. POSTOPERATIVE DIAGNOSIS: Abnormal finding, CT scan of chest superior segment of the right lower lobe as well as in the left lower lobe. No endobronchial obstructive lesions. PROCEDURE DESCRIPTION: Informed consent obtained for the patient. The patient brought to the OR and placed in supine position. Conscious sedation administered by the Anesthesia Department. After achieving proper sedation, airway introduced into the mouth. Bronchoscope advanced to airway into laryngeal area. Epiglottis and vocal cords were seen moving symmetric movements. Bronchoscope advanced vocal cord and tracheal lumen noted small purulent secretions suctioned out to marilyn level. Marilyn noted sharp, right upper lobe opening was noted with surgical finding. Right upper lobectomy. The right middle, right lower lobe bronchial opening were noted. BAL specimen was obtained right lower lobe bronchi superior segment of the right lower lobe. Scattered secretions present in the rest of the endobronchial tree, right side, which were cleared with normal saline wash. Left upper, lingular lower lobe bronchus was also noted with impacted mucus with endobronchial subsegments. BAL specimen was also obtained in the left lower lobe bronchi as well. Bronchial washing sent for the cytology. Cell differential and all the necessary cultures. Postoperative patient noted with hypoxia in the recovery and responded well with O2 treatment of the BiPAP setting of 14/8 with normal oxygenation noted 97% with 40% of oxygen will be transferred to his room with gradual weaning of the BiPAP will be done accordingly. CHAPIN BEAUCHAMP MD CM:PROCNOTE:PROCEDURE NOTE 1218 1524 CHAPIN ALVARADO MD
--- NOTE | ~2019-03-06 | EKG ---
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
--- NOTE | ~2019-03-06 | CON ---
[place], [place] REPORT OF CONSULTATION NAME: SANDRO SPAIN [facility] #: [id number] UNIT #: [id number] ROOM: 407 DOCTOR: NITO ALVARADO MD,CHAPIN BIRTHDATE: [birth year] DOS: 03/07/2019 PULMONARY CONSULTATION, EVALUATION, AND MANAGEMENT CONSULTATION REQUESTED BY: Mateo Garza M.D. REASON FOR CONSULTATION: To assess the patient for recurrent abnormal finding CT scan of chest with ongoing pneumonia, possibility of malignancy combination of both chronic obstructive pulmonary disease. HISTORY OF PRESENT ILLNESS: This is a 68-year-old white male patient who has been assessed in the office last few weeks. He has been noted what appears like a consolidative area with atelectasis and infiltration in the left lower lobe. The patient has been treated with the antibiotics twice as an antibiotic given as Levaquin for 10 days, 2 weeks prior to the repeat CT scan of the chest to assess the improvement in the symptoms. The patient has a CT scan of the chest that was completed, was noted with a new pulmonary abnormality with area of consolidation and infiltration. He has been recommended for inpatient hospitalization. He has been noted with increase cough without any sputum expectoration, general weakness and fatigue with difficulty of ambulation because of the current ongoing problem. He has been assessed and admitted to the hospital for further care. He has been started on intravenous antibiotic. The cough has been reported nonproductive at this time. He denies symptoms of chest pain, fever or chills. Denies symptoms of hemoptysis. Denies symptoms of chest pain at this time. Shortness of breath, which has been present at rest, but noted with somewhat worsening. REVIEW OF SYSTEMS: CONSTITUTIONAL: Fatigue and tiredness noted, couple of pounds of body weight loss in the last few weeks. EYES: Denies any burning, redness, or tenderness. EARS, NOSE, THROAT SYMPTOMS: No sore throat, hoarseness, otalgia, postnasal drainage or epistaxis. CARDIOVASCULAR: Denies angina pain, palpitation, edema or pain of the lower extremities. GASTROINTESTINAL: No denies dysphagia, nausea, vomiting, diarrhea, abdominal pain, hematemesis, melena, or hematochezia. SKIN: Denies abnormal lesions or rashes. CENTRAL NERVOUS SYSTEM: No dizziness, headache, diplopia or syncopal episodes. Remaining systems were reviewed, they were noted all negative. PAST MEDICAL HISTORY: Noted with; 1. History of advanced COPD including bullous emphysema. 2. Low-grade nicotine abuse. 3. Chronic hypoxic respiratory failure as well. 4. Previous history of fungal infection right upper lobe, treated with lobectomy. PAST SURGICAL HISTORY: [place], [place] REPORT OF CONSULTATION [id number] UN[facility] #: [id number] ROOM: 407 DOCTOR: NITO ALVARADO MD,CHAPIN BIRTHDATE: [birth year] 1. Right upper lobectomy done approximately 9 years ago. 2. Therapeutic bronchoscopy. 3. Past PICC line insertion. SOCIAL HISTORY: The patient is , currently retired from his job. Lives at home. Tobacco use, started as a teenager, 2 packs of cigarettes daily, occasionally smokes few cigarettes a day. There was no history of alcohol use, illicit drug use stated. FAMILY HISTORY: The patient reported remarkable for coronary artery disease and cancer. MEDICATIONS: Current medications, which has been administered at this time was noted as Avodart, omeprazole, DuoNeb, Pulmicort Respules, azithromycin one dose given, IV Zosyn given, and Flomax. DRUG ALLERGIES: ALLERGIC TO ERYTHROMYCIN BASE. PHYSICAL EXAMINATION: GENERAL: A 68-year-old white male patient who has been currently resting on the bed without any distress. Height of 5 feet 11 inches, weight 112 pounds, BMI 15.6. VITAL SIGNS: For the patient normal temperature, respiratory rate 20 - 28, heart rate 88 - 105, blood pressure of 92/63 - 102/70. Pulse oxygen saturation recorded as 93% saturation on 3 liters nasal cannula. HEENT: Examination shows head was atraumatic. Eyes nonicterus. NECK: Supple. Head was atraumatic. CARDIOVASCULAR: S1, S2 is audible. LUNGS: Noted general reduction in the breath sounds bilaterally. ABDOMEN: Soft, nontender. Bowel sounds present. EXTREMITIES: The patient without any acute edema, clubbing or cyanosis. MUSCULOSKELETAL: Without acute deformities. CENTRAL NERVOUS SYSTEM: Noted grossly intact. LABORATORY DATA: CBC that was done yesterday in the Emergency Room was noted with WBC count as 9.7, hemoglobin 11.7, platelet count was normal. Differential were noted, eosinophils 0.3%. PTT was normal. Lactic acid 3.5. CMP that was done on 03/06/2019, BUN normal and creatinine was normal. CO2 was 34. PT and PTT was normal. Chest x-ray that was done, 1 view in the Emergency Room was reviewed as well shows area of infiltration, consolidation in the left lower lobe, was also noted with abnormality of the right upper lobe previously. Small left-sided pleural fluid was noted with increase infiltration in the left lower lung. CT scan of the chest that was done on 03/01/2019 was reviewed shows 2.5 cm area of consolidation in the right upper lobe, noted with previous scarring and bullous emphysema was seen at that area as well, mass-like consolidation noted in the left lower lobe, which also noted to be progressed. IMPRESSION: 1. The patient will be currently admitted to the hospital with history of end-stage chronic obstructive pulmonary disease with emphysema and chronic [place], [place] REPORT OF CONSULTATION NAME: SANDRO SPAIN UNIT #: [id number] ROOM: 407 DOCTOR: NITO ALVARADO [facility] BIRTHDATE: [birth year] obstructive pulmonary disease, chronic hypoxic respiratory failure, admitted to the hospital with possibility of recurrent new pulmonary infection, possible consideration of malignancy as well. Fungal infection to be considered in view of past fungal history, bullous emphysema in lung, especially in the left upper lobe, resistant infection could also be present, not responding to outpatient therapy with increased infiltration. 2. The patient had low-grade nicotine abuse as well. 3. BMI less than 19. PLAN OF MANAGEMENT: The patient has been considered for bronchoscopy with BAL specimen will be done tomorrow morning. At this time, the patient will be started on antibiotic coverage as intravenous meropenem and ordered doxycycline. Follow the culture results as well, therapeutic plan of management. Supportive care, other therapy, plan of management, treatment plan of management and care. Other additional treatment changes will be made for this patient based on progression of his illness. We will be ordered for the patient's sputum culture as well, able to expectorate could be sent. Other differential of these findings noted on CT scan suggestive of atypical infection to be excluded including Mycobacterium avium complex and similar etiologies. Thanks for allowing me to participate in the care of this patient. CHAPIN BEAUCHAMP MD CM:CONSTR:REPORT OF CONSULTATION 1246 03/07/19 1502 interface
--- NOTE | ~2019-03-06 | PR ---
[place], [place] PROGRESS NOTE NAME: [facility]IN [id number] UNIT #: [id number] ROOM: 407 DOCTOR: CHAPIN STAFFORD MD BIRTHDATE: [birth year] DOS: 03/08/2019 SUBJECTIVE: The patient was noted about the same. Complaining of fatigue and tiredness with partial reduction respiratory symptoms were noted. There were no symptoms of fever or chills stated by the patient. Denies symptoms of hemoptysis. Denies symptoms of nausea or vomiting. The patient was continued with antibiotics meropenem and oral doxycycline combination. Plan for bronchoscopy done today. There were no symptoms of headache or diplopia, nausea, vomiting, diarrhea stated by the patient. There were no symptoms of pain of the lower extremity. Remaining systems reviewed, noted all negative. OBJECTIVE: VITAL SIGNS: This morning, normal temperature, respiratory rate 20, heart rate 93, blood pressure 138/86, pulse oxygen saturation on 3 liters nasal cannula 96% saturation recorded. HEENT: Head was atraumatic. Eyes nonicterus. NECK: Supple. CARDIOVASCULAR: S1, S2 audible. LUNGS: Noted with decreased breath sounds in the lungs bilaterally. ABDOMEN: Soft, nontender. EXTREMITIES: Without acute edema. MUSCULOSKELETAL: Without acute deformities. LABORATORY DATA: The patient's blood culture on 03/06/2019 showed no bacterial growth. IMPRESSION: 1. The patient with current suspected pulmonary infection, rule out malignancy as well with chronic obstructive pulmonary disease, acute exacerbation as well. 2. The patient with acute pneumonia, nonresolution as an outpatient. PLAN OF TREATMENT: Continue bronchodilators at this time, would not require steroids. There were no wheezing present at this time. Continue current antibiotic, proceed with fibrobronchoscopy as planned. Any additional treatment changes recommendation necessary will be made after the bronchoscopy. [place], [place] PROGRESS NOTE NAME: SPAINSANDRO UNIT #: [id number] ROOM: 407 DOCTOR: CHAPIN STAFFORD MD BIRTHDATE: [birth year] CHAPIN BEAUCHAMP MD CM:PNTRANS 1210 1512 CHAPIN ALVARADO MD 03/08/19 1512 interface
--- NOTE | ~2019-03-06 | PR ---
[place], [place] PROGRESS NOTE NAME: [facility]IN [facility] #: [id number] UNIT #: [id number] ROOM: 407 DOCTOR: DOMINGO COOPER MD BIRTHDATE: [birth year] DOS: 03/08/2019 SUBJECTIVE: The patient is breathing somewhat better today after bronchoscopy. OBJECTIVE: VITAL SIGNS: Blood pressure 115/78, heart rate 88 beats per minute, breathing 20 times per minute, temperature 98 degrees Fahrenheit. GENERAL APPEARANCE: The patient is alert and oriented x 3, in no visible distress. Generalized muscle wasting and cachexia. HEENT AND NECK: Exam within normal limits. CARDIOVASCULAR SYSTEM: Heart rate is regular in rate and rhythm. S1 and S2 normally audible. LUNGS: Clear to auscultation. ABDOMEN: Soft, nontender. No obvious organomegaly. Bowel sounds are present. EXTREMITIES: Without significant cyanosis or edema. IMPRESSION: 1. The patient with advanced adult failure to thrive, generalized muscle wasting, working with Physical Therapy. 2. Acute over chronic respiratory failure secondary to pneumonia and acute exacerbation of chronic obstructive pulmonary disease, being treated with bronchodilators, antibiotic, oxygen and Dr. Harmon is following. He is status post bronchoscopy. 3. Wywr-bi-xzrrizug protein-calorie malnutrition, albumin level of 2.9. The patient working with Dietary. 4. Gastroesophageal reflux disease and esophagitis, asymptomatic. The patient is taking omeprazole. 5. Benign prostatic hypertrophy, treated with Flomax and Proscar, which are being continued. 6. Generalized weakness and adult failure to thrive. The patient working in physical therapy. DOMINGO COOPER MD CM:PNTRANS [id number] DOMINGO COOPER MD 03/08/194 interface
--- NOTE | ~2019-03-06 | WRIGHTHP ---
[place], [place] PATIENT HISTORY AND PHYSICAL EXAM NAME: SANDRO SPAIN [facility] #: [id number] UNIT #: [id number] ROOM: 407 DOCTOR: DOMINGO COOPER MD BIRTHDATE: [birth year] DOS: 03/06/2019 HISTORY OF PRESENT ILLNESS: The patient is a 68-year-old gentleman with a past medical history of: 1. 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 2. History of right partial lobectomy. 3. BPH and urinary retention. 4. Generalized anxiety disorder. 5. GERD and esophagitis. 6. Vitamin D deficiency. 7. Mild protein-calorie malnutrition. The patient presented to the Emergency Department after 2 weeks complaints of increasing shortness of breath, cough, chest congestion. The patient was sent over by Dr. Harmon, his subway operator because of pneumonia and respiratory failure. The patient was evaluated in the Emergency Department and a new pneumonic infiltrate in the left lung base. The patient also has chronic right and diffuse parenchymal scarring and COPD. No chest pain, no dizziness or fainting episodes. REVIEW OF SYSTEMS: RESPIRATORY SYSTEM: Acute over chronic increasing shortness of breath, wheezing, chest congestion. CARDIOVASCULAR SYSTEM: No chest pain or palpitations. GASTROINTESTINAL: No nausea, vomiting, diarrhea, constipation. ALLERGIES: Known allergies to ERYTHROMYCIN. HOME MEDICATIONS: Albuterol, budesonide. PHYSICAL EXAMINATION: GENERAL: Alert, oriented x 3, somewhat short of breath but in mild to moderate distress. The patient has cachexia, generalized muscle wasting and weakness. VITAL SIGNS: Blood pressure 98/60, heart rate of 77 beats per minute, breathing 20-28 times per minute, temperature of 98.2 degrees Fahrenheit. HEENT AND NECK: Extraocular movements are intact. Sclerae are anicteric. Oral mucosa is moist and clean. No obvious facial weakness. Neck is supple without any lymphadenopathy. No thyromegaly. No JVD. No carotid arterial bruits. LUNGS: Decreased breath sounds all over on lung auscultation. CARDIOVASCULAR SYSTEM: Heart rate is regular in rate and rhythm. S1 and S2 normally audible. No significant murmur or any other abnormal cardiac sounds. ABDOMEN: Soft, nontender. No obvious organomegaly. Bowel sounds are present. No obvious herniation. EXTREMITIES: Without significant cyanosis or edema. Warm to touch. CENTRAL NERVOUS SYSTEM: Alert and oriented x 3. Cranial nerves II-XII are intact. Speech is normal. The patient is able to move all extremities. Deep tendon reflexes are equal on both sides. Plantars were downgoing. LABORATORY DATA: Cardiac enzymes are negative. Chest x-ray results as mentioned above. [place], [place] PATIENT HISTORY AND PHYSICAL EXAM NAME: SANDRO SPAIN [facility] #: [id number] UNIT #: [id number] ROOM: 407 DOCTOR: DOMINGO COOPER MD BIRTHDATE: [birth year] IMPRESSION: 1. The patient presenting with acute over chronic respiratory failure and pneumonia with tachypnea and tachycardia, signs of early sepsis with acute over chronic respiratory failure, admitted to a monitored bed and treated with antibiotics, oxygen, bronchodilators, nebulizer treatments and being monitored closely on a quality assurance monitor chassis. Dr. Harmon, his subway operator is also following him. 2. Hypotension, apparently related to his chronic disease stage with end-stage lung disease and also early sepsis. 3. Dxii-kx-sumkcgzl protein-calorie malnutrition with an albumin level of 2.9. The patient to work with Dietary. 4. Gastroesophageal reflux disease and esophagitis. Plan to continue omeprazole. 5. Benign prostatic hyperplasia treated with ____ and Flomax, which were continued. DOMINGO COOPER MD CM:HISPHYS:PATIENT HISTORY AND PHYSICAL EXAMINATION [id number] DOMINGO COOPER MD 03/07/19 1252 interface
--- NOTE | ~2019-03-06 | PR ---
[place], [place] PROGRESS NOTE [id number] #: [id number] ROOM: 407 DOCTOR: CHAPIN STAFFORD MD BIRTHDATE: [birth year] DOS: 03/11/2019 PULMONARY PROGRESS NOTE SUBJECTIVE: He has been noted comfortable, resting on the bed this morning of assessment. He was not reporting any symptoms of fever or chills. There were no coughing or any sputum expectoration. He has been also noted with gradual improvement in the physical debility as well. OBJECTIVE: VITAL SIGNS: For the patient which were recorded showed the temperature noted as normal. Respiratory rate 20, heart rate 68, blood pressure 100/62. The pulse oxygen saturation recorded on 3 liters nasal cannula 96% saturation. HEENT: Examination shows head was atraumatic. Eyes nonicterus. NECK: Supple. CARDIOVASCULAR: S1, S2 is audible. LUNGS: The patient was noted with decreased breath sounds without any wheezing. ABDOMEN: Soft, nontender. Bowel sounds present. EXTREMITIES: No new change. LABORATORY DATA: Urine Legionella antigen and strep antigen report noted negative, sent on the 03/07/2019, acid fast bacillus although the specimen bronchial washing BAL was noted negative smear with pending culture results from 03/08/2019. IMPRESSION: The patient with clinical resolving acute pneumonia, rule out malignancy or other atypical infection at this time as well. The patient with bullous emphysema as well and chronic obstructive pulmonary disease. PLAN OF CARE: No changes in the plan at this time will be necessary. All other treatment plan as previously ongoing will be continued. Usual care, other supportive plan of therapy. Discharge planning after arrangement of the antibiotic in the home setting. He would be considered a chest x-ray, PA and lateral was ordered to assess his left lower lobe infiltration progression. [place], [place] PROGRESS NOTE NAME: SANDRO SPAIN UNIT #: [id number] ROOM: 407 DOCTOR: CHAPIN STAFFORD MD BIRTHDATE: [birth year] CHAPIN BAEUCHAMP MD CM:PNTRANS [id number] CHAPIN ALVARADO MD 03/11/19 1404 interface
[~2019-03-06 16:26] MED LIST changes: -CEFTRIAXON2 GM/50 ML IV; -Ipratropium Brom3 ML INH; -OMEPRAZOLE MAGN20 MG PO; -VENT7GM INH
[2019-03-06 16:55] LABS: BASO % 0.4 % (0.0-1.0); EOS % 0.3 % (1.0-4.0); HEMATOCRIT 37.1 % (42.0-52.0); HEMOGLOBIN 11.4 g/dl (14.0-18.0); LYMPH # 0.9 10*3/uL (1.3-4.4); MEAN CORPUSCULAR HGB 30.7 pg (27.0-31.0); MEAN CORPUSCULAR HGB CONC 30.7 g/dl (33.0-37.0); MEAN PLATELET VOLUME 10.5 fl (9.6-12.3); MONO # 1.1 10*3/uL (0.1-1.0); MONO % 11.1 % (3.0-9.0); NEUT # 7.7 10*3/uL (2.3-7.9); PLATELET COUNT AUTOMATED 310 10*3/uL (130-400); RED BLOOD COUNT 3.71 10*6/uL (4.50-5.90); RED CELL DISTRI WIDTH 13.9 % (0-14.5); WHITE BLOOD COUNT 9.7 10*3/uL (4.8-10.8)
[2019-03-06 17:05] LABS: ACT PARTIAL THROMBO TIME 29.4 SECONDS (20.0-32.1)
[2019-03-06 17:25] LABS: ALBUMIN 2.9 gm/dl (3.1-4.5); ALKALINE PHOSPHATASE 186 U/L (45-117); BUN 10 mg/dl (7-24); CHLORIDE 96 mmol/L (98-107); CREATININE 0.43 mg/dL (0.70-1.30); POTASSIUM 3.9 mmol/L (3.5-5.1); SGOT/AST 10 IU/L (3-35); SGPT/ALT 13 U/L (12-78); SODIUM 136 mmol/L (136-145)
[2019-03-06 17:27] LABS: TROPONIN I < 0.015 ng/ml (<0.045)
[2019-03-06] MEDS ORDERED: VENT7GM INH (18:46)
[2019-03-06] MEDS ORDERED: Ipratropium Brom3 ML INH (18:47)
[2019-03-06] MEDS ORDERED: OMEPRAZOLE MAGN20 MG PO (18:47)
[2019-03-07] VITALS: BP 98/59
[2019-03-07 08:00] VITALS: BP 92/63
[2019-03-07 09:42] LABS: ACT PARTIAL THROMBO TIME 29.4 SECONDS (20.0-32.1)
[2019-03-07 12:00] VITALS: BP 94/66
[2019-03-07 16:00] VITALS: BP 101/55
[2019-03-07 20:00] VITALS: BP 102/63
[2019-03-08] VITALS (9 sets, daily range): BP systolic 94–138; BP diastolic 7–86
[2019-03-08 12:48] LABS: BF LYMPHOCYTES 3 %; BF MACROPHAGES 8 %; BF MONOCYTES 3 %; BF NEUTROPHILS 86 %
[2019-03-08 12:52] LABS: BF LYMPHOCYTES 2 %; BF MACROPHAGES 6 %; BF NEUTROPHILS 91 %
[2019-03-09] VITALS: BP 110/70
[2019-03-09 08:00] VITALS: BP 110/62
[2019-03-09 12:00] VITALS: BP 91/59
[2019-03-09 16:00] VITALS: BP 100/63
[2019-03-09 20:00] VITALS: BP 97/62
[2019-03-10] VITALS: BP 105/67
[2019-03-10 07:40] LABS: BASO # 0.1 10*3/uL (0.0-0.1); BASO % 0.6 % (0.0-1.0); EOS # 0.2 10*3/uL (0.0-0.4); EOS % 2.4 % (1.0-4.0); HEMATOCRIT 36.9 % (42.0-52.0); HEMOGLOBIN 10.8 g/dl (14.0-18.0); LYMPH % 10.2 % (27.0-41.0); MEAN CELL VOLUME 102.8 fl (80.0-94.0); MEAN CORPUSCULAR HGB 30.1 pg (27.0-31.0); MEAN CORPUSCULAR HGB CONC 29.3 g/dl (33.0-37.0); MONO # 1.1 10*3/uL (0.1-1.0); MONO % 11.6 % (3.0-9.0); NEUT # 7.4 10*3/uL (2.3-7.9); NEUT % 74.9 % (47.0-73.0); PLATELET COUNT AUTOMATED 294 10*3/uL (130-400); RED BLOOD COUNT 3.59 10*6/uL (4.50-5.90); RED CELL DISTRI WIDTH 14.1 % (0-14.5); WHITE BLOOD COUNT 9.9 10*3/uL (4.8-10.8)
[2019-03-10 07:43] VITALS: BP 108/60
[2019-03-10 08:11] LABS: CHLORIDE 101 mmol/L (98-107); POTASSIUM 4.4 mmol/L (3.5-5.1); SODIUM 140 mmol/L (136-145)
[2019-03-10 08:18] LABS: BUN 11 mg/dl (7-24); CREATININE 0.33 mg/dL (0.70-1.30)
[2019-03-10 11:09] LABS: ACID FAST SPEC PROCESSING Concentration (.)
[2019-03-10 12:00] VITALS: BP 105/68
[2019-03-10 16:00] VITALS: BP 109/68
[2019-03-10 20:00] VITALS: BP 111/65
[2019-03-11] VITALS: BP 97/59
[2019-03-11 08:00] VITALS: BP 100/62
[2019-03-11 12:00] VITALS: BP 112/62
[2019-03-11] MEDS ORDERED: CEFTRIAXON2 GM/50 ML IV (12:41)
== END 2019-03-11 15:56 | disposition home or self-care (01) | DRG 871 ==
LOC: ED 16:26 → 4E 17:57 → EDHOLD 17:57 → 4E 18:23
PROVIDERS: Emergency Medicine; Internal Medicine; Internal Medicine Critical Care Medicine; ADMIT Internal Medicine
PROC: 0BC78ZZ Extirpation of Matter from Left Main Bronchus, Via Natural or Artificial Opening Endoscopic (ICD-10-PCS; principal; 2019-03-08)
PROC: 0BC98ZZ Extirpation of Matter from Lingula Bronchus, Via Natural or Artificial Opening Endoscopic (ICD-10-PCS; principal; 2019-03-08)
PROC: 0BC48ZZ Extirpation of Matter from Right Upper Lobe Bronchus, Via Natural or Artificial Opening Endoscopic (ICD-10-PCS; principal; 2019-03-08)
PROC: 0BC58ZZ Extirpation of Matter from Right Middle Lobe Bronchus, Via Natural or Artificial Opening Endoscopic (ICD-10-PCS; principal; 2019-03-08)
PROC: 0BC88ZZ Extirpation of Matter from Left Upper Lobe Bronchus, Via Natural or Artificial Opening Endoscopic (ICD-10-PCS; principal; 2019-03-08)
PROC: 0BC38ZZ Extirpation of Matter from Right Main Bronchus, Via Natural or Artificial Opening Endoscopic (ICD-10-PCS; principal; 2019-03-08)
PROC: 5A09357 Assistance with Respiratory Ventilation, Less than 24 Consecutive Hours, Continuous Positive Airway Pressure (ICD-10-PCS; principal; 2019-03-08)
PROC: 0BC68ZZ Extirpation of Matter from Right Lower Lobe Bronchus, Via Natural or Artificial Opening Endoscopic (ICD-10-PCS; principal; 2019-03-08)
PROC: 0BC18ZZ Extirpation of Matter from Trachea, Via Natural or Artificial Opening Endoscopic (ICD-10-PCS; principal; 2019-03-08)
PROC: 0BCB8ZZ Extirpation of Matter from Left Lower Lobe Bronchus, Via Natural or Artificial Opening Endoscopic (ICD-10-PCS; principal; 2019-03-08)
PROC: 5A09357 Assistance with Respiratory Ventilation, Less than 24 Consecutive Hours, Continuous Positive Airway Pressure (ICD-10-PCS; 2019-03-09)
DX: A41.9 Sepsis, unspecified organism (principal); J18.1 Lobar pneumonia, unspecified organism; J96.21 Acute and chronic respiratory failure with hypoxia; E44.0 Moderate protein-calorie malnutrition; Z68.1 Body mass index [BMI] 19.9 or less, adult; R62.7 Adult failure to thrive; K21.0 Gastro-esophageal reflux disease with esophagitis; J43.8 Other emphysema; N40.1 Benign prostatic hyperplasia with lower urinary tract symptoms; R33.8 Other retention of urine; F41.1 Generalized anxiety disorder; E55.9 Vitamin D deficiency, unspecified; Z79.899 Other long term (current) drug therapy; Z88.1 Allergy status to other antibiotic agents

== ENCOUNTER → 2019-03-21 | Outpatient (CLI) | payer MEDICARE, OTHER ==
[~2019-03-21] MED LIST changes: +CEFTRIAXON2 GM/50 ML IV; +Ipratropium Brom3 ML INH; +OMEPRAZOLE MAGN20 MG PO; +VENT7GM INH
== END | disposition home or self-care (01) ==
LOC: RAD 14:31
DX: J43.8 Other emphysema (principal)

== ENCOUNTER → 2019-06-03 | Outpatient (CLI) | payer MEDICARE, OTHER | END | disposition home or self-care (01) | LOC: CT 12:40 | DX: J43.1 Panlobular emphysema (principal); Z90.2 Acquired absence of lung [part of] ==

== ENCOUNTER → 2019-06-25 | Outpatient (CLI) | payer MEDICARE, OTHER | END | disposition home or self-care (01) | LOC: LAB 12:54 | DX: R05 Cough (principal) ==

== ENCOUNTER 2019-10-18 15:58 | Inpatient (IN) | payer MEDICARE, OTHER ==
[~2019-10-18] VITALS: Ht 180.3 cm; Wt 53.5 kg
[2019-10-18 16:10] VITALS: BP 98/66
[2019-10-18 17:35] LABS: BASO # 0.1 10*3/uL (0.0-0.1); BASO % 0.5 % (0.0-1.0); EOS % 0.2 % (1.0-4.0); HEMATOCRIT 37.2 % (42.0-52.0); LYMPH # 0.7 10*3/uL (1.3-4.4); LYMPH % 5.4 % (27.0-41.0); MEAN CELL VOLUME 102.5 fl (80.0-94.0); MEAN CORPUSCULAR HGB 30.3 pg (27.0-31.0); MEAN CORPUSCULAR HGB CONC 29.6 g/dl (33.0-37.0); MEAN PLATELET VOLUME 10.7 fl (9.6-12.3); MONO # 1.2 10*3/uL (0.1-1.0); MONO % 9.6 % (3.0-9.0); NEUT # 10.9 10*3/uL (2.3-7.9); NEUT % 83.8 % (47.0-73.0); PLATELET COUNT AUTOMATED 385 10*3/uL (130-400); RED BLOOD COUNT 3.63 10*6/uL (4.50-5.90); RED CELL DISTRI WIDTH 13.3 % (0-14.5)
[2019-10-18 17:45] LABS: ACT PARTIAL THROMBO TIME 28.2 SECONDS (20.0-32.1)
[2019-10-18 17:51] LABS: ALBUMIN 2.4 gm/dl (3.1-4.5); ALKALINE PHOSPHATASE 202 U/L (45-117); BUN 7 mg/dl (7-24); CHLORIDE 94 mmol/L (98-107); CREATININE 0.34 mg/dL (0.70-1.30); POTASSIUM 4.2 mmol/L (3.5-5.1); SGOT/AST 22 IU/L (3-35); SGPT/ALT 18 U/L (12-78); SODIUM 135 mmol/L (136-145); TOTAL PROTEIN 6.4 gm/dL (6.4-8.2)
[2019-10-18 17:52] LABS: TROPONIN I < 0.015 ng/ml (<0.045)
[2019-10-18 17:56] VITALS: BP 104/67
--- NOTE | 2019-10-18 18:03 | NUR ---
PATIENT AT WINDOW, NO UPDATE TO BE GIVING AT THIS TIME, WOULD LIKE TO BE CONTACTED WITH UPDATE OR PATIENT GETS ADMNITTED. ZULEMA [phone].
[2019-10-18 18:49] VITALS: BP 97/63
--- NOTE | 2019-10-18 20:10 | NUR ---
PATIENT DENIES WOUNDS, REFUSED TO LET THIS NURSE LOOK.
[2019-10-18 22:10] VITALS: BP 108/60
--- NOTE | 2019-10-18 22:10 | NUR ---
A 68, admitted to , under the services of Dr. KENNETH CORRALES,DOMINGO Mejía with a diagnosis of COPD, PNEUMONIA. Chief complaint is CAME IN WITHC/O SHORTNESS OF BREATH. WAS SEEN EARLIER BY DR. BEAUCHAMP TODAY. Patient arrived via stretcher from ER. Monitor applied. Initial assessment completed. Vital signs taken and recorded. DR. KENNETH CORRALES,DOMINGO Mejía notified of admission to the unit. Orders received. See assessment for past medical history, medications and allergies. Patient and/or family oriented to unit. [facility] visitation policy reviewed. Clothing/patient valuable form completed. BERNARDINO HENLEY
[2019-10-18] MEDS ORDERED: VITAMIN C1000 M5 PO (22:51)
[2019-10-18] MEDS ORDERED: MEN 50 PLUS MU1 EACH PO (22:52)
--- NOTE | 2019-10-18 23:00 | NUR ---
BODY ALARM IN USE FOR PATIENT SAFETY . ENCOURAGING REST D/T SHORTNESS OF BREATH.
--- NOTE | 2019-10-18 23:40 | NUR ---
DR. COOPER CALLED. ORDERS RECEIVED.
--- NOTE | 2019-10-18 23:45 | NUR ---
NOTIFIED OF CONSULT PER ORDER. ORDER FOR ANTIBIOTICS RECEIVED
[2019-10-19] VITALS: BP 108/60
--- NOTE | 2019-10-19 07:30 | NUR ---
PT RESTING IN BED. VOICES NO CONCERNS AT THIS TIME. RESPS EASY AND NON LABORED. NO S/S OF DISTRESS NOTED. VSS.WHITE BOARD UPDATED. UPDATED ON PLAN OF CARE. CALL LIGHT WITHIN REACH. 3L OXYGEN VIA NASAL CANNULA INTACT.
[2019-10-19 08:00] VITALS: BP 94/62
--- NOTE | 2019-10-19 09:56 | NUR ---
[facility]cqa Specialist in to talk to patient. Patient states lives at home with . There are a few steps in the home. Physician: Dr Garza Pharmacy: [facility] Home health services: no Patient's level of ADLs: MINIMAL ASSIST Patient has working utilities: yes DME: O2 Follow-up physician's appointment after d/c: Pt will schedule Does patient want to access PORTAL?: no Discharge plan Pt states that he lives with his and would accept [facility] services only if doctor felt necessary. Pt provided limited information. Case management will continue to follow for discharge needs. KIA VILLAR
--- NOTE | 2019-10-19 10:58 | NUR ---
Shift chart check completed.
--- NOTE | 2019-10-19 11:30 | NUR ---
DR BEAUCHAMP IN TO SEE PT. STATES TO ORDER A SPUTUM CULTURE.
[2019-10-19 12:00] VITALS: BP 100/63
--- NOTE | 2019-10-19 14:21 | NUR ---
PT SITTING UP IN BED WATCHING TV. VOICES NO CONCERNS AT THIS TIME. RESPS EASY AND NON LABORED. NO S/S OF DISTRESS NOTED. OXYGEN INTACT. CALL LIGHT WITHIN REACH.
[2019-10-19 16:00] VITALS: BP 84/56
--- NOTE | 2019-10-19 17:57 | NUR ---
PT SITTING UP TO EAT DINNER. VOICES NO CONCERNS AT THIS TIME. RESPS EASY AND NON LABORED. NO S/S OF DISTRESS. OXYGEN INTACT. NO SOB NOTED. CALL LIGHT WITHIN REACH.
[2019-10-19 20:00] VITALS: BP 101/63
--- NOTE | 2019-10-19 21:00 | NUR ---
RESTING IN BED WITH NO ACUTE DISTRESS NOTED. RESPIRATIONS EASY. LUNGS DIMINISHED. PULSE OX 97% 3L, HUMIDIFICATION APPLIED. CLAIMS PROD COUGH. CALL LIGHT WITHIN REACH. NO VOICED COMPLAINTS
[2019-10-20] VITALS: BP 95/57
--- NOTE | 2019-10-20 | NUR ---
SLEEPING. NO DISTRESS NOTED. RESPIRATIONS EASY. VSS. CALL LIGHT WITHIN REACH.
--- NOTE | 2019-10-20 03:54 | NUR ---
24 HR chart check completed.
--- NOTE | 2019-10-20 06:00 | NUR ---
SLEPT THROUGHOUT NIGHT WITH NO DISTRESS NOTED. RESPIRATIONS EASY. O2 IN USE. CALL LIGHT WITHIN REACH. NO VOICED COMPLAINTS THIS SHIFT
[2019-10-20 08:00] VITALS: BP 100/62
--- NOTE | 2019-10-20 08:19 | NUR ---
PT RESTING IN BED/ NO DISTRESS NOTED. WILL MONITOR
[2019-10-20 12:00] VITALS: BP 102/58
[2019-10-20 16:00] VITALS: BP 113/63
[2019-10-20 20:00] VITALS: BP 120/71
--- NOTE | 2019-10-20 20:29 | NUR ---
24 HR chart check completed.
[2019-10-21] VITALS: BP 110/64
--- NOTE | 2019-10-21 06:00 | NUR ---
SLEPT THROUGHOUT NIGHT WITH NO DISTRESS NOTED. RESPIRATIONS EASY. CALL LIGHT WITHIN REACH. NO VOICED COMPLAINTS THIS SHIFT
[2019-10-21 06:29] LABS: HEMATOCRIT 33.1 % (42.0-52.0); MEAN CELL VOLUME 100.6 fl (80.0-94.0); MEAN CORPUSCULAR HGB 29.8 pg (27.0-31.0); MEAN CORPUSCULAR HGB CONC 29.6 g/dl (33.0-37.0); MEAN PLATELET VOLUME 10.4 fl (9.6-12.3); PLATELET COUNT AUTOMATED 372 10*3/uL (130-400); RED BLOOD COUNT 3.29 10*6/uL (4.50-5.90); RED CELL DISTRI WIDTH 13.6 % (0-14.5); WHITE BLOOD COUNT 10.3 10*3/uL (4.8-10.8)
[2019-10-21 06:53] LABS: ALBUMIN 2.4 gm/dl (3.1-4.5); ALKALINE PHOSPHATASE 174 U/L (45-117); BUN 15 mg/dl (7-24); CHLORIDE 100 mmol/L (98-107); CREATININE 0.32 mg/dL (0.70-1.30); POTASSIUM 4.4 mmol/L (3.5-5.1); SGOT/AST 15 IU/L (3-35); SGPT/ALT 15 U/L (12-78); SODIUM 140 mmol/L (136-145); TOTAL PROTEIN 6.2 gm/dL (6.4-8.2)
[2019-10-21 07:20] LABS: TOTAL CELLS COUNTED 100 #CELLS
[2019-10-21 07:21] LABS: OVALOCYTES FEW; PLATELET SUFFICIENCY NORMAL (NORMAL); POLYCHROMASIA SLIGHT; TOXIC GRANULATION SLIGHT
[2019-10-21 08:00] VITALS: BP 106/74
--- NOTE | 2019-10-21 08:45 | NUR ---
PT RESTING IN BED. NO DISTRESS NOTED. WILL MONITOR
--- NOTE | 2019-10-21 09:00 | NUR ---
Tree Warden in to see patient. He lives at home with his . He states there are "too many" steps at home. Discussed home health care services and he denies any home needs at this time. O2 @ 4L nc, portable O2 tank, nebulizer, O2 supplier [facility]. He states his will provide transportation on discharge.
--- NOTE | 2019-10-21 10:35 | NUR ---
PHYSICAL THERAPY Attempted to see pt at the bedside this AM for evaluation, pt declining therapy at this time as "not feeling up to it". Will check back in the PM Neena Moreria PT
[2019-10-21 12:00] VITALS: BP 109/67
--- NOTE | 2019-10-21 14:00 | NUR ---
PHYSICAL THERAPY Attempted to see pt in the afternoon for Physical Therapy evaluation, however pt continues to decline thearpy at this time stating "just not up to it today". Pt agreeable to trying therapy in the AM after breakfast will follow. Neena Moreira PT
[2019-10-21 16:00] VITALS: BP 111/74
--- NOTE | 2019-10-21 19:52 | NUR ---
PATIENT SITTING AT SIDE OF BED, 4L NC INTACT, O2 DEP 3-4 L AT HOME PER PT. ASSESSMENT COMPLETE. PT VERBALIZED NO NEEDS AT THIS TIME. BED IN LOWEST, LOCKED POS, CALL LIGTH IN REACH.
[2019-10-21 20:00] VITALS: BP 121/93
[2019-10-22] VITALS: BP 116/73
--- NOTE | 2019-10-22 00:07 | NUR ---
PATIENT SITTING AT SIDE OF BED, NO COMPLAINTS, DENIES NEEDS. BED IN LOW, LOCKED POS, CALL LIGHT IN REACH.
--- NOTE | 2019-10-22 04:00 | NUR ---
PT SLEEPING; NO DISTRESS, 4L VIA NC.
[2019-10-22 06:11] LABS: HEMATOCRIT 35.1 % (42.0-52.0); MEAN CELL VOLUME 102.3 fl (80.0-94.0); MEAN CORPUSCULAR HGB CONC 29.3 g/dl (33.0-37.0); MEAN PLATELET VOLUME 10.3 fl (9.6-12.3); PLATELET COUNT AUTOMATED 358 10*3/uL (130-400); RED BLOOD COUNT 3.43 10*6/uL (4.50-5.90); RED CELL DISTRI WIDTH 13.9 % (0-14.5); WHITE BLOOD COUNT 14.9 10*3/uL (4.8-10.8)
[2019-10-22 06:28] LABS: BUN 19 mg/dl (7-24); CHLORIDE 98 mmol/L (98-107); POTASSIUM 4.6 mmol/L (3.5-5.1); SGOT/AST 30 IU/L (3-35); SODIUM 139 mmol/L (136-145)
[2019-10-22 06:34] LABS: ALKALINE PHOSPHATASE 167 U/L (45-117); SGPT/ALT 25 U/L (12-78); TOTAL PROTEIN 6.3 gm/dL (6.4-8.2)
[2019-10-22 06:46] LABS: PLATELET SUFFICIENCY NORMAL (NORMAL); TOTAL CELLS COUNTED 100 #CELLS
[2019-10-22 06:47] LABS: ALBUMIN 2.6 gm/dl (3.1-4.5); CREATININE 0.33 mg/dL (0.70-1.30)
[2019-10-22 08:00] VITALS: BP 118/74
--- NOTE | 2019-10-22 08:12 | NUR ---
PT RESTING IN BED, EATING BREAKFAST. NO DISTRESS NOETD. WILL MONITOR
--- NOTE | 2019-10-22 08:30 | NUR ---
Coding Assistant in to see patient. No new needs or request at this time. He denies any home needs. When medically stable he will be discharged to home.
--- NOTE | 2019-10-22 08:45 | NUR ---
Physical Therapy evaluation completed on 5th floor with full evaluation to follow. Recommend physical therapy per plan of care and Home with and f/u HH upon discharge if pt cont to progress well pt states he wants to go home and is agreeable to HH. Thank you for this referral. Neena Moreira PT
--- NOTE | 2019-10-22 11:00 | NUR ---
Trade Clerk in to see patient to discuss therapy home health care services as recommended by therapy. He is agreeable. When provided with a list of agencies he chose [facility].
[2019-10-22 12:00] VITALS: BP 106/64
[2019-10-22 16:00] VITALS: BP 113/66
--- NOTE | 2019-10-22 19:56 | NUR ---
PATIENT RESTING ON SIDE OF BED, PURSED LIP BREATHING ON 4L NC, NO DISTRESS NOTED, ASSESSMENT COMPLETE, NO NEEDS MADE. CALL [facility] IN REACH.
[2019-10-22 20:00] VITALS: BP 117/73
[2019-10-23] VITALS: BP 113/67
--- NOTE | 2019-10-23 02:15 | NUR ---
PATIENT IS SLEEPING ON BACK, RESPIRATIONS EASY AND REGULAR ON 4L NC. WILL CONT TO MONITOR.
[2019-10-23 06:07] LABS: ALBUMIN 2.5 gm/dl (3.1-4.5); ALKALINE PHOSPHATASE 146 U/L (45-117); BUN 18 mg/dl (7-24); CHLORIDE 98 mmol/L (98-107); CREATININE 0.37 mg/dL (0.70-1.30); POTASSIUM 4.4 mmol/L (3.5-5.1); SGOT/AST 27 IU/L (3-35); SGPT/ALT 34 U/L (12-78); SODIUM 138 mmol/L (136-145); TOTAL PROTEIN 6.3 gm/dL (6.4-8.2)
[2019-10-23 06:17] LABS: HEMATOCRIT 35.2 % (42.0-52.0); MEAN CELL VOLUME 101.7 fl (80.0-94.0); MEAN CORPUSCULAR HGB 30.1 pg (27.0-31.0); MEAN CORPUSCULAR HGB CONC 29.5 g/dl (33.0-37.0); MEAN PLATELET VOLUME 10.4 fl (9.6-12.3); PLATELET COUNT AUTOMATED 340 10*3/uL (130-400); RED BLOOD COUNT 3.46 10*6/uL (4.50-5.90); WHITE BLOOD COUNT 14.4 10*3/uL (4.8-10.8)
[2019-10-23 06:51] LABS: PLATELET SUFFICIENCY NORMAL (NORMAL); TOTAL CELLS COUNTED 100 #CELLS; TOXIC GRANULATION SLIGHT
--- NOTE | 2019-10-23 07:32 | NUR ---
24 HR CHART CHECK COMPLETE.
--- NOTE | 2019-10-23 07:36 | NUR ---
IN TO SEE PT AT THIS TIME. PT IS SITTING UP IN BED WATCHING TV. NO S/S OF DISTRESS NOTED. 4L NC IN USE. RESPS ARE EASY AND NONLABORED. BED LOW, CALL LIGHT WITHIN REACH. WILL CONTINUE TO MONITOR.
[2019-10-23 08:00] VITALS: BP 122/72
--- NOTE | 2019-10-23 10:30 | NUR ---
[place] Attacher in to see patient. Discussed home health care and he is agreeable for a nurse and therapy. When provided with a list of agencies he chose [facility] as that is where Dr. Garza suggested to him. Faxed referral to [place]. Received prescription for a shower chair from Dr. Garza. faxed to [facility].
[2019-10-23] MEDS ORDERED: LEVOFLOXACIN500 MG PO (10:31)
--- NOTE | 2019-10-23 10:45 | NUR ---
PHYSICAL THERAPY Patient seen this am 1;1 for therapy visit and was sitting up on EOB upon therapist arrival. Patient identified by name / and presented with continuous O2-4L via NC. Patient recorded resting SpO2 93%, HR 98 bpm prior to transfering sit to stand, SBA x 1. Patient ambulated 30'x 1, SBA, navigating ad juan miguel in room with extended O2 hose, demonstrating very slow, cautiouos gait pattern. Patient needed v/c to improve safety awareness to avoid stepping on, tripping over or getting tangled up in extended O2 hose. Patient also fatigues very quickly upon return to EOB sit recording SpO2 86%, HR 110 bpm. After 1 minute seated rest, patient SpO2 90%, HR 100 bpm as patient remained EOB sit as Nurse arrived. Will continue per POC as tolerated, total treatment time 13 minutes. Chidi Thomas, RN DIABETES EDUCATOR
--- NOTE | 2019-10-23 13:14 | NUR ---
Received call from Tiffany Lopez at [facility]. Patient's insurance does not cover a shower chair. Dr. Garza and patient notified.
--- NOTE | 2019-10-23 13:49 | NUR ---
Discharge instructions reviewed with patient/family. Patient receptive and verbalizes understanding. Follow-up care arranged. Written instructions given to patient/family. MISSY BARTLETT
--- NOTE | 2019-10-24 08:08 | NUR ---
PHYSICAL THERAPY CO-SIGN I approve of the Physical Therapy notes written above. Neena Moreira PT
== END 2019-10-23 13:24 | disposition home or self-care (01) | DRG 193 ==
LOC: ED 15:58 → EDHOLD 20:56 → 5E 20:56
PROVIDERS: Emergency Medicine; Internal Medicine Critical Care Medicine; ADMIT Internal Medicine
DX: J18.1 Lobar pneumonia, unspecified organism (principal); E43 Unspecified severe protein-calorie malnutrition; J96.22 Acute and chronic respiratory failure with hypercapnia; J96.21 Acute and chronic respiratory failure with hypoxia; E87.3 Alkalosis; Z68.1 Body mass index [BMI] 19.9 or less, adult; R63.4 Abnormal weight loss; D72.829 Elevated white blood cell count, unspecified; T38.0X5A Adverse effect of glucocorticoids and synthetic analogues, initial encounter; R62.7 Adult failure to thrive; R33.8 Other retention of urine; K21.0 Gastro-esophageal reflux disease with esophagitis; N40.1 Benign prostatic hyperplasia with lower urinary tract symptoms; J43.9 Emphysema, unspecified; J20.9 Acute bronchitis, unspecified; Y92.89 Other specified places as the place of occurrence of the external cause; Z88.1 Allergy status to other antibiotic agents; Z82.49 Family history of ischemic heart disease and other diseases of the circulatory system; Z80.9 Family history of malignant neoplasm, unspecified; Z81.8 Family history of other mental and behavioral disorders

== ENCOUNTER → 2020-02-05 | Outpatient (CLI) | payer MEDICARE, OTHER ==
[~2020-02-05] MED LIST changes: +LEVOFLOXACIN500 MG PO; +MEN 50 PLUS MU1 EACH PO; +VITAMIN C1000 M5 PO
== END | disposition home or self-care (01) ==
LOC: LAB 12:00
PROVIDERS: ATTEND Internal Medicine
DX: J44.1 Chronic obstructive pulmonary disease with (acute) exacerbation (principal)

== ENCOUNTER 2020-02-25 13:08 | Inpatient (IN) | payer MEDICARE, OTHER ==
[2020-02-25] VITALS (7 sets, daily range): BP systolic 102–120; BP diastolic 65–78
[~2020-02-25] VITALS: Ht 182.8 cm; Wt 51.8 kg
[2020-02-25 13:34] LABS: BASO % 0.3 % (0.0-1.0); EOS # 0.1 10*3/uL (0.0-0.4); EOS % 0.5 % (1.0-4.0); HEMATOCRIT 37.7 % (42.0-52.0); LYMPH # 0.9 10*3/uL (1.3-4.4); MEAN CELL VOLUME 95.9 fl (80.0-94.0); MEAN CORPUSCULAR HGB 28.5 pg (27.0-31.0); MEAN CORPUSCULAR HGB CONC 29.7 g/dl (33.0-37.0); MEAN PLATELET VOLUME 10.1 fl (9.6-12.3); MONO # 1.2 10*3/uL (0.1-1.0); MONO % 8.2 % (3.0-9.0); NEUT # 12.5 10*3/uL (2.3-7.9); NEUT % 84.7 % (47.0-73.0); PLATELET COUNT AUTOMATED 345 10*3/uL (130-400); RED BLOOD COUNT 3.93 10*6/uL (4.50-5.90); RED CELL DISTRI WIDTH 13.2 % (0-14.5); WHITE BLOOD COUNT 14.7 10*3/uL (4.8-10.8)
[2020-02-25 13:45] LABS: ACT PARTIAL THROMBO TIME 28.4 SECONDS (20.0-32.1)
[2020-02-25 13:52] LABS: ALBUMIN 3.1 gm/dl (3.1-4.5); ALKALINE PHOSPHATASE 196 U/L (45-117); BUN 8 mg/dl (7-24); CHLORIDE 98 mmol/L (98-107); CREATININE 0.52 mg/dL (0.70-1.30); SGOT/AST 13 IU/L (3-35); SGPT/ALT 18 U/L (12-78); SODIUM 136 mmol/L (136-145); TOTAL PROTEIN 7.8 gm/dL (6.4-8.2)
--- NOTE | 2020-02-25 13:53 | NUR ---
PT TO CT AT THIS TIME.
[2020-02-25 13:54] LABS: TROPONIN I < 0.015 ng/ml (<0.045)
--- NOTE | 2020-02-25 14:32 | NUR ---
REBECCA [phone]
[2020-02-25 14:41] LABS: ABG BASE EXCESS 8.5 mmol/L (-2.0-2.0); ARTERIAL BLOOD GAS PH 7.436 (7.35-7.45)
--- NOTE | 2020-02-25 15:00 | NUR ---
PT ATTEMPTED TO USE URINAL, NO SUCCESS, TOLERATED GETTING OUT AND BACK INTO BED WELL. CALL LIGHT IN REACH.
--- NOTE | 2020-02-25 16:06 | NUR ---
ATTEMPTED TO USE URINAL AGAIN, SMALL AMOUNT OF URINE. GIVEN BOXED LUNCH REQUESTED.
--- NOTE | 2020-02-25 16:42 | NUR ---
ATE SOME OF HIS BOXED LUNCH, SITING IN BED WATCHING TV. NO VOICED NEEDS OR CONPLAINTS.
--- NOTE | 2020-02-25 18:30 | NUR ---
Time: 1829 A 69 year old MALE admitted to under services of DEWAYNE GARCIA MD. Pt. arrived via stretcher from ER. Chief complaint: SHORTNESS OF BREATH. CHARLETTE SHARP
[2020-02-25] MEDS ORDERED: POTASSIUM CHLO10 MEQ PO (18:43)
[2020-02-25] MEDS ORDERED: BUMETANIDE1 MG PO (18:43)
[2020-02-25] MEDS ORDERED: COLACE100 MG PO (18:45)
--- NOTE | 2020-02-25 18:48 | NUR ---
SPOKE WITH VIA TELEPHONE, AWARE PT ADMITTED.
--- NOTE | 2020-02-25 20:12 | NUR ---
CALL PLACED TO DR. GRAY ORDERS RECEIVED, AND DOCUMENTED.
--- NOTE | 2020-02-25 20:22 | NUR ---
NOTIFIED OF CONSULT. DISCUSSED CURRENT ORDERS. WILL SEE PT TOMORROW.
--- NOTE | 2020-02-25 20:51 | NUR ---
PATIENT CALLED OUT STATING HE CANNOT BREATH. PULSE OX 98% ON 4 LITERS. PATIENT REQUESTING BREATHING TREATMENT. WILL NOTIFY DOCTOR
--- NOTE | 2020-02-25 20:54 | NUR ---
DR GRAY NOTIFIED OF PATIENT REQUESTING BREATHING TREATMENTS. ORDER TAKEN FOR DUONEBS Q4H
[2020-02-26] VITALS: BP 95/62
[2020-02-26] MEDS ORDERED: SILDENAFIL PO (03:02)
--- NOTE | 2020-02-26 07:59 | NUR ---
PHYSICAL THERAPY Screen received pt admitted with COPD exacerbation, please consult PT if pt has a decline in functional status below baseline thank you Neena Moreira PT
[2020-02-26 08:00] VITALS: BP 102/62
--- NOTE | 2020-02-26 09:00 | NUR ---
Nurses Aide in to talk to patient. Patient states lives at home with his . There are "lots" steps in the home. Physician: Dr. Mateo Garza Pharmacy: [facility] health services: has had [facility] in the past Patient's level of ADLs: INDEPENDENT Patient has working utilities: yes DME: shower chair, O2 @ 4L nc, portable tanks, nebulizer, O2 supplier [facility] Follow-up physician's appointment after d/c: he prefers to make his own follow up appt after discharge Does patient want to access PORTAL?: no Discharge plan discussed with patient. He lives at home with his . He states he is independent in his ADLs and ambulation. Discussed home health care services and he declines. CM will continue to follow for any discharge planning needs. When medically stable he will be discharged to home. He states his will provide transportation on discharge. PIO BELLO
[2020-02-26 12:00] VITALS: BP 104/64
--- NOTE | 2020-02-26 14:26 | NUR ---
Nursing screen received and chart reviewed. Patient admitted with COPD. If patient should have a decline in ADLs from baseline then refer to OT for further assessment. Thank you. Marylin Haque OTR/L
--- NOTE | 2020-02-26 15:16 | NUR ---
Received message from Dr. Harmon regarding NIV at home. Spoke to Erin at [facility], she states they do no have any information yet. No prescription in the chart.
[2020-02-26 16:00] VITALS: BP 93/58
--- NOTE | 2020-02-26 19:54 | NUR ---
24 HR chart check completed.
[2020-02-26 20:00] VITALS: BP 102/57
--- NOTE | 2020-02-26 21:00 | NUR ---
RESTING IN BED. NO ACUTE DISTRESS NOTED. RESPIRATIONS EASY. LUNGS DIMINISHED WITH POOR AIR EXCHANGE. PULSE OX 97% 4L HUMIDIFIED. CLAIMS OCCASIONAL COUGH. CALL LIGHT WITHIN REACH. NO VOICED COMPLAINTS
[2020-02-27] VITALS: BP 95/51
--- NOTE | 2020-02-27 | NUR ---
SLEEPING. RESPIRATIONS EASY. VSS. CALL LIGHT WITHIN REACH
--- NOTE | 2020-02-27 06:00 | NUR ---
SLEPT THROUGHOUT NIGHT WITH NO DISTRESS NOTED. RESPIRATIONS EASY. O2 IN USE. CALL LIGHT WITHIN REACH. NO VOICED COMPLAINTS THIS SHIFT
[2020-02-27 08:00] VITALS: BP 110/62; BP 112/68
--- NOTE | 2020-02-27 09:23 | NUR ---
not available for echo, eating.
[2020-02-27 12:00] VITALS: BP 112/68
[2020-02-27 16:00] VITALS: BP 91/57
--- NOTE | 2020-02-27 19:15 | NUR ---
24 HR chart check completed.
[2020-02-27 20:00] VITALS: BP 91/62
--- NOTE | 2020-02-27 20:00 | NUR ---
RESTING WITH HOB ELEVATED AND NO ACUTE DISTRESS NOTED. RESPIRATIONS EASY. LUNGS DIMINISHED WITH POOR AIR EXCHANGE. PULSE OX 97% 4L HUMIDIFIED. LOOSE OCCASIONALLY PROD COUGH. CALL LIGHT WITHIN REACH. NO VOICED COMPLAINTS.
[2020-02-28] VITALS: BP 92/58
--- NOTE | 2020-02-28 | NUR ---
SLEEPING. NO DISTRESS NOTED. RESPIRATIONS EASY. VSS. CALL LIGHT WITHIN REACH
--- NOTE | 2020-02-28 05:34 | NUR ---
STATES EARLIER LAXATIVES NOT EFFECTIVE, DULCOLAX PROVIDED FOR NO BM X 3 DAYS
--- NOTE | 2020-02-28 06:00 | NUR ---
SLEPT THROUGHOUT NIGHT WITH NO DISTRESS NOTED. RESPIRATIONS EASY. O2 IN USE. CALL LIGHT WITHIN REACH. NO VOICED COMPLAINTS THIS SHIFT
[2020-02-28 08:00] VITALS: BP 101/65
--- NOTE | 2020-02-28 09:00 | NUR ---
CM in to see patient. He is ambulating back to bed from the bathroom with his O2 in place. No new needs or request at this time. Discussed home health care services and he declines. CM will continue to follow for any discharge planning needs. When medically stable he will be discharged to home.
[2020-02-28 16:00] VITALS: BP 109/62
--- NOTE | 2020-02-28 19:18 | NUR ---
24 HR chart check completed.
--- NOTE | 2020-02-28 20:00 | NUR ---
resting in bed with no acute distress noted. respirations easy. lungs diminished. o2 in use at 4l humidified. loose cough, occasionally prod. patient states earlier laxatives effective. call light within reach. no voiced complaints
--- NOTE | 2020-02-29 | NUR ---
Patient resting quietly with no c/o discomfort. Respirations easy and regular. Vital signs stable. No overt distress. LUIS ROGERS
[2020-02-29 00:02] VITALS: BP 95/60
--- NOTE | 2020-02-29 04:00 | NUR ---
Patient resting quietly with no c/o discomfort. Respirations easy and regular. Vital signs stable. No overt distress. LUIS ROGERS
--- NOTE | 2020-02-29 04:51 | NUR ---
24 HR chart check completed.
[2020-02-29 08:00] VITALS: BP 99/67
[2020-02-29 12:00] VITALS: BP 95/56
[2020-02-29 16:00] VITALS: BP 92/61
--- NOTE | 2020-02-29 17:34 | NUR ---
PATIENT RESTING COMFORTABLY. TOOK MEDS PERSCRIBED. NO ISSUES AT THIS TIME.
[2020-02-29 20:00] VITALS: BP 99/62
--- NOTE | 2020-02-29 20:15 | NUR ---
IN TO ASSESS PATIENT, PATIENT PLEASANT AND COOPERATIVE WITH ASSESSMENT. BREATHING IS EASY AND REGULAR AT REST, BUT PATIENT STATES HE GETS WINDED WITH EXERTION. PATIENT O2 DEPENDENT ON 4L NC. PATIENT OFFERS NO COMPLAINTS AT THIS TIME. CALL LIGHT WITHIN REACH, WILL MONITOR
--- NOTE | 2020-02-29 22:28 | NUR ---
24 HR chart check completed.
[2020-03-01] VITALS: BP 101/57
--- NOTE | 2020-03-01 01:06 | NUR ---
PT SLEEPING, NO DISTRESS NOTED. 4L NC INTACT. CALL LIGHT WITHIN REACH, WILL MONITOR
--- NOTE | 2020-03-01 03:43 | NUR ---
PATIENT SLEEPING, 4L NC INTACT. BREATHING IS EASY AND REGULAR. CALL LIGHT WITHIN REACH, WILL MONITOR
--- NOTE | 2020-03-01 07:43 | NUR ---
24 HR chart check completed.
[2020-03-01 08:00] VITALS: BP 100/62
--- NOTE | 2020-03-01 08:00 | NUR ---
PATIENT SITTING AT BEDSIDE, FLAT AFFECT. RESPIRATIONS EASY. LUNGS DIMINISHED WITH POOR AIR EXCHANGE. PULSE OX 100% 4L HUMIDIFIED. CLAIMS OCCASIONALLY PROD COUGH. CALL LIGHT WITHIN REACH. NO VOICED COMPLAINTS.
--- NOTE | 2020-03-01 14:30 | NUR ---
DR COOPER PRESENT ON FLOOR TO ASSESS PATIENT AND DISCUSS PLAN OF CARE
--- NOTE | 2020-03-01 14:45 | NUR ---
DR BEAUCHAMP CONTACTED AT DR COOPER'S REQUEST TO INQUIRE TO WHAT ANTIBIOTIC PATIENT SHOULD BE DISCHARGED ON. PER DR BEAUCHAMP, ANY MEDICATION WOULD BE FINE
[2020-03-01] MEDS ORDERED: AUGMENTIN 875-875 MG PO (14:49)
[2020-03-01] MEDS ORDERED: MEDROL DOSEPAK4 MG PO (14:49)
[2020-03-01] MEDS ORDERED: MIRALAX POWDER17 G1 PO (14:49)
--- NOTE | 2020-03-01 16:15 | NUR ---
Discharge instructions reviewed with patient. Patient receptive and verbalizes understanding. Written instructions given to patient. PATIENT DISCHARGED VIA WC TO [facility]
== END 2020-03-01 16:25 | disposition home or self-care (01) | DRG 189 ==
LOC: ED 13:08 → EDHOLD 17:33 → 4E 17:33
PROVIDERS: Emergency Medicine; ADMIT Internal Medicine; ATTEND Internal Medicine
DX: J96.21 Acute and chronic respiratory failure with hypoxia (principal); E43 Unspecified severe protein-calorie malnutrition; J44.1 Chronic obstructive pulmonary disease with (acute) exacerbation; Z68.1 Body mass index [BMI] 19.9 or less, adult; J20.9 Acute bronchitis, unspecified; R33.8 Other retention of urine; F41.1 Generalized anxiety disorder; E55.9 Vitamin D deficiency, unspecified; N40.1 Benign prostatic hyperplasia with lower urinary tract symptoms; Z96.642 Presence of left artificial hip joint; R91.1 Solitary pulmonary nodule; K59.00 Constipation, unspecified; F17.200 Nicotine dependence, unspecified, uncomplicated; Z82.49 Family history of ischemic heart disease and other diseases of the circulatory system; Z88.1 Allergy status to other antibiotic agents; Z80.3 Family history of malignant neoplasm of breast